=== PATIENT | female | born 1985 | race Caucasian/White ===

== ENCOUNTER 2022-05-02 13:25 | Outpatient (CLI) | payer BC, SELFPAY ==
[2022-05-02 22:58] LABS: SARS PCR* POSITIVE SARS-CoV-2 (Negative)
== END 2022-05-02 13:26 | disposition home or self-care (01) ==
LOC: KYNREF 13:25
PROVIDERS: PCP Nurse Practitioner Family; Visit Provider Nurse Practitioner Family
DX: U07.1 COVID-19 (principal); J11.1 Influenza due to unidentified influenza virus with other respiratory manifestations
CPT/HCPCS: 87635

== ENCOUNTER 2022-07-27 16:16 | Outpatient (CLI) | payer BC, SELFPAY ==
[2022-07-27 22:15] LABS: Chloride* 106 mmol/L (96-114); Potassium* 4.4 mmol/L (3.6-5.1); Sodium* 137 mmol/L (135-149)
[2022-07-27 22:17] LABS: Creatinine* 0.6 mg/dL (0.5-1.5); Estimated Glomerular Filt Rate 121 ml/min
[2022-07-27 22:18] LABS: Blood Urea Nitrogen* 12 mg/dL (5-24); Calcium* 8.7 mg/dL (8.4-10.6); Carbon Dioxide* 23 mmol/L (20-32); Glucose* 112 mg/dL (60-115)
== END 2022-07-27 16:17 | disposition home or self-care (01) ==
PROVIDERS: PCP Nurse Practitioner Family; Visit Provider Nurse Practitioner Family
DX: R00.2 Palpitations (principal)
CPT/HCPCS: 80048; 84443

== ENCOUNTER 2023-01-04 13:56 | Outpatient (CLI) | payer BC, SELFPAY ==
--- NOTE | 2023-01-04 14:00 | CRLHL7_ITS ---
For Patients: As a result of the Century Cures Act, medical imaging exams and procedure reports are released immediately into your electronic medical record. You may view this report before your referring provider. If you have questions, please contact your health care provider. INDICATION: Superficial thrombophlebitis, increasing pain and redness. COMPARISON: Right lower extremity venous ultrasound 01/02/2023. TECHNIQUE: A compression venous ultrasound exam was performed of the right lower extremity using montes de oca-scale imaging, color Doppler and spectral Doppler analysis. FINDINGS: Sonographic imaging of the right lower extremity demonstrates normal compressibility and color Doppler venous blood flow within the common femoral, femoral, and deep femoral veins. At a lower level the popliteal, peroneal, and posterior tibial veins also show normal compressibility and color Doppler venous blood flow. There is increased extent of superficial thrombus within the right greater saphenous vein which now extends from mid calf to mid thigh. The proximal greater saphenous vein and saphenofemoral junction are patent. Limited imaging of the contralateral groin demonstrates a normal spectral waveform and color Doppler venous blood flow within the left common femoral vein. IMPRESSION: 1. Negative for acute DVT in the right lower extremity. 2. Increased extent of superficial thrombus within the right greater saphenous vein which now extends from mid calf to mid thigh. This remains several centimeters from the saphenofemoral junction. Dictated by Ivonne Melendrez MD @ 01/05/2023 12:39:58 AM (Electronically Signed)
== END 2023-01-04 13:57 | disposition home or self-care (01) ==
PROVIDERS: PCP Nurse Practitioner Family; Visit Provider Nurse Practitioner Family
DX: I80.02 Phlebitis and thrombophlebitis of superficial vessels of left lower extremity (principal)
CPT/HCPCS: 93971

== ENCOUNTER 2023-01-05 08:49 | Outpatient (CLI) | payer BC, SELFPAY | END 2023-01-05 08:50 | disposition home or self-care (01) | PROVIDERS: PCP Nurse Practitioner Family; Visit Provider Nurse Practitioner Family | DX: I80.01 Phlebitis and thrombophlebitis of superficial vessels of right lower extremity (principal) | CPT/HCPCS: 80048; 81241 ==

== ENCOUNTER 2023-01-08 10:40 | Outpatient (CLI) | payer BC, SELFPAY | END 2023-01-08 10:41 | disposition home or self-care (01) | LOC: NFLDREF 01-14 07:02 | PROVIDERS: PCP Nurse Practitioner Family; Referring Provider Nurse Practitioner Family; Visit Provider Nurse Practitioner Family | DX: I80.9 Phlebitis and thrombophlebitis of unspecified site (principal); Z51.81 Encounter for therapeutic drug level monitoring | CPT/HCPCS: 81241 ==

== ENCOUNTER 2023-01-11 14:58 | Outpatient (CLI) | payer BC, SELFPAY ==
--- NOTE | 2023-01-11 15:00 | CRLHL7_ITS ---
For Patients: As a result of the Century Cures Act, medical imaging exams and procedure reports are released immediately into your electronic medical record. You may view this report before your referring provider. If you have questions, please contact your health care provider. INDICATION: FOLLOW UP SUPERFICIAL THROMBOPHLEBITIS COMPARISON: 01/04/2023 TECHNIQUE: A compression venous ultrasound exam was performed of the right lower extremity using montes de oca-scale imaging, color Doppler and spectral Doppler analysis. FINDINGS: Sonographic imaging of the right lower extremity demonstrates normal compressibility and color Doppler venous blood flow within the common femoral vein and deep femoral vein. Within the thigh, the femoral vein is patent and compressible. At a lower level, the popliteal and posterior tibial veins also show normal compressibility and color Doppler venous blood flow. Limited imaging of the contralateral groin demonstrates a normal spectral waveform and color Doppler venous blood flow within the left common femoral vein. Hypoechoic noncompressible clot again noted within the right greater saphenous vein in the mid and distal thigh extending to the knee and proximal calf. The mid calf greater saphenous vein is now compressible. IMPRESSION: No DVT right lower extremity. Slight improvement in the long segment superficial clot involving the greater saphenous vein. Dictated by Destin Terrazas MD @ 01/11/2023 3:39:31 PM (Electronically Signed)
== END 2023-01-11 14:59 | disposition home or self-care (01) ==
LOC: US 14:59
PROVIDERS: PCP Nurse Practitioner Family; Visit Provider Nurse Practitioner Family
DX: I80.9 Phlebitis and thrombophlebitis of unspecified site (principal)
CPT/HCPCS: 93971

== ENCOUNTER 2023-01-18 13:38 | Outpatient (CLI) | payer SELFPAY | END 2023-01-18 13:39 | disposition home or self-care (01) | LOC: KYNREF 14:34 | PROVIDERS: PCP Nurse Practitioner Family; Visit Provider Nurse Practitioner Family | DX: I80.9 Phlebitis and thrombophlebitis of unspecified site (principal); Z51.81 Encounter for therapeutic drug level monitoring | CPT/HCPCS: 85379 ==

== ENCOUNTER 2023-06-07 08:35 | Outpatient (CLI) | payer BC, SELFPAY ==
--- OUTSIDE RECORDS SUMMARY | 2023-06-07 08:40 | XMS_ITS | Referral Summary ---
Author Name Unknown Organization [facility] Address [address] [place] [address]. [place] [address] Care Team Providers Care Linen Checker Name Role Phone Sherice Lange NP Primary Care Provider Burton Barragan MD Unavailable [phone] Encounters Date Type Department Care Team Description 04/16/2023 Travel 04/16/2023 9:10 AM MILLWRIGHT SUPERVISOR Office Visit [facility] [address] [phone] Burton Barragan MD Acute superficial venous thrombosis of lower extremity, right 04/04/2023 Travel 04/04/2023 10:30 AM MILLWRIGHT SUPERVISOR Lab [facility] [address] [place] [phone] Burton Barragan MD Acute superficial venous thrombosis of lower extremity, right 04/04/2023 11:00 AM MILLWRIGHT SUPERVISOR Ancillary Procedure [facility] [address] [phone] Burton Barragan MD Acute superficial venous thrombosis of lower extremity, right from Last 3 Months Allergies No known active allergies Medications Medication Sig Dispensed Refills Start Date End Date Status CloNIDine ER (KAPVAY) 0.1 MG 12 hr tablet TAKE 4 TABLET BY MOUTH EVERY EVENING 0 01/03/2023 Active ARIPiprazole (ABILIFY) 5 MG tablet 0 12/27/2022 Active Methylphenidate HCl (METHYLPHENIDATE ER, NON-OSM,) 54 MG 24H tablet Take 54 mg by mouth 0 Active rivaroxaban ANTICOAGULANT (XARELTO) 10 MG TABS tabletIndications:Acut e superficial venous thrombosis of lower extremity, right Take 1 tablet (10 mg) by mouth daily (with dinner) 90 tablet 1 04/16/2023 Active Social History Tobacco Use Types Packs/Day Years Used Date Smoking Tobacco: Never Tobacco Cessation:Counseling Given: Not Answered Alcohol Use Standard Drinks/Week Comments Not Currently 0 (1 standard drink = 0.6 oz pur e alcohol) 1x every 2 months Adolescent Education Answer Date Record ed Getting School Help Needed Not on file 02/02 Sex and Gender Information Value Date Recorded Sex Assigned at Female 01/25/2023 9:48 AM CDT Gender Identity Female 01/25/2023 9:48 AM CDT Sexual Orientation Bisexual 01/25/2023 9: 48 AM CDT Last Filed Vital Signs Vital Sign Reading Time Taken Comments Blood Pressure 118/80 04/16/2023 9:06 AM MILLWRIGHT SUPERVISOR Pulse 79 04/16/2023 9:06 AM MILLWRIGHT SUPERVISOR Temperature - - Respiratory Rate - - Oxygen Saturation 99% 04/16/2023 9:06 AM MILLWRIGHT SUPERVISOR Inhaled Oxygen Concentration - - Weight 117.6 kg (259 lb 3.2 oz) 04/16/2023 9:06 AM MILLWRIGHT SUPERVISOR Height 171.5 cm (5' 7.5) 04/16/2023 9:06 AM MILLWRIGHT SUPERVISOR Body Mass Index 40 04/16/2023 9:06 AM MILLWRIGHT SUPERVISOR Plan of Treatment Not on file Procedures Procedure Name Priority Date/Time Associated Diagnosis Comments US VENOUS COMPETENCY BILATERAL Routine 04/04/2023 12:08 PM MILLWRIGHT SUPERVISOR Acute superficial venous thrombosis of lower extremity, right D DIMER QUANTITATIVE Routine 04/04/2023 10:38 AM MILLWRIGHT SUPERVISOR Acute superficial venous thrombosis of lower extremity, right from Last 3 Months Results * US Venous Competency Bilateral (04/04/2023 12:08 PM MILLWRIGHT SUPERVISOR) Anatomical Region Laterality Modality Lower Extremity Ultrasound Impressions 04/09/2023 10:49 AM MILLWRIGHT SUPERVISOR Examined by: Freddy Doan RVT Age: ??37 year old ? Reading MD: Milagros Arrington INDICATION: ??Patient is referred for superficial thrombophlebitis. EXAM TYPE BILATERAL LOWER EXTREMITY VENOUS DUPLEX FOR VENOUS INSUFFICIENCY TECHNICAL SUMMARY A duplex ultrasound study using color flow was performed, to evaluate the bilateral lower extremity veins for valvular incompetence with the patient in a steep reversed trendelenberg. RIGHT: The deep veins demonstrate phasic flow, compress and respond to augmentations. ??There is no DVT. ??The common femoral and mid femoral veins are incompetent and free of thrombus. The remaining deep veins are competent and free of thrombus. The GSV is partially compressible in the proximal calf with response to color flow and augmentations, consistent with chronic, non-occlusive thrombus. The remaining great saphenous vein demonstrates phasic flow, compresses and responds to augmentations. ??The great saphenous vein measures 7.2 mm at the saphenofemoral junction, 6.4 mm at the proximal thigh, and 3.5 mm at the knee. The GSV is incompetent from SFJ to Proximal Calf, with the greatest reflux time of 7061 milliseconds. The mid thigh GSV leaves the sheath and is tortuous. ?? The AASV is competent ( 3.7 mm) draining into the saphenofemoral junction. The Giacomini vein is absent. The SSV demonstrates phasic flow, compresses and responds to augmentations from the popliteal space to the ankle. ??No thrombus is seen. The saphenopopliteal junction is competent (2.1 mm). ??The SSV is incompetent at the Proximal Calf ??with a reflux time of 763 milliseconds. Perforators: there is no evidence of incompetent travel insurance agent veins at any level. LEFT: The deep veins demonstrate phasic flow, compress and respond to augmentations. ??There is no DVT. ??The proximal femoral vein is incompetent and free of thrombus. The remaining deep veins are competent and free of thrombus. The GSV demonstrates phasic flow, compresses and responds to augmentations from the saphenofemoral junction to the ankle with no evidence of thrombus. The great saphenous vein measures 5.2 mm at the saphenofemoral junction, 4.9 mm at the proximal thigh, and 2.8 mm at the knee. The GSV is incompetent from Proximal Thigh to Mid Thigh and again at the proximal calf, with the greatest reflux time of 5576 milliseconds. ??The GSV gives rise to a varicose branch measuring 6.9 mm off the ??Mid Thigh that courses toward proximal calf GSV where it also connects with a reflux time of 5939 milliseconds. ?? The AASV is competent ( 3.4 mm) draining into the saphenofemoral junction. The Giacomini vein is competent ( 1.8 mm) communicating with the small saphenous vein at the knee level. The SSV demonstrates phasic flow, compresses and responds to augmentations from the popliteal space to the ankle. ??No reflux or thrombus is seen. ?? The saphenopopliteal junction is absent. Perforators: there is no evidence of incompetent travel insurance agent veins at any level. FINAL SUMMARY: Right lower extremity: Deep veins 1. ??No deep vein thrombosis 2. ??Common femoral and mid femoral vein incompetence, otherwise the deep vein valves are competent Superficial veins 1. ??Chronic, nonocclusive thrombus right proximal to mid calf great saphenous vein 2. ??Saphenofemoral junction through proximal calf great saphenous vein incompetence 3. ??Proximal calf small saphenous vein incompetence Director Semiconductor veins No incompetent perforators Left lower extremity: Deep veins 1. ??No deep vein thrombosis 2. ??Proximal femoral vein incompetence, otherwise the deep vein valves are competent Superficial veins 1. ??No superficial thrombophlebitis 2. ??Proximal to mid femoral and proximal calf great saphenous vein incompetence. ??A large, incompetent varicosity courses from the thigh great saphenous vein down to the medial calf Director Semiconductor veins No incompetent perforators Incompetence Criteria: greater than 500 milliseconds in superficial and travel insurance agent veins and greater than 1000 milliseconds in deep veins. Milagros Arrington MD, FACS Narrative 04/09/2023 10:49 AM MILLWRIGHT SUPERVISOR Name: ??Kun Wu ? Date: April 04, 2023 ?: 1985 Sex: female Burton Barragan MD IMG US ORDER MAR * D dimer quantitative (04/04/2023 10:38 AM MILLWRIGHT SUPERVISOR) D-Dimer Quantitative 0.35 0.00 - 0.50 ug/mL FEU 04/04/2023 2:24 PM MILLWRIGHT SUPERVISOR [facility] Blood STRUCTURE OF LEFT UPPER LIMB / Unknown Venipuncture / Unknown 04/04/2023 10:38 AM MILLWRIGHT SUPERVISOR 04/04/2023 10:38 AM MILLWRIGHT SUPERVISOR Narrative [facility] - 04/04/2023 2:24 PM MILLWRIGHT SUPERVISOR This D-dimer assay is intended for use in conjunction with a clinical pretest probability assessment model to exclude pulmonary embolism (PE) and deep venous thrombosis (DVT) in outpatients suspected of PE or DVT. The cut-off value is 0.50 ug/mL FEU. Burton Barragan MD LAB - BLOOD ORDERABLES [facility] [address] Lab (no room number, 1st floor of clinic) [place] [address], [facility] [phone] from Last 3 Months Care Teams Linen Checker Relationship Specialty Start Date End Date Sherice Lange NP [address] [address] PCP - General 01/25/23 Burton Barragan MD [address] [place] [address] Assigned Heart and Vascular Provider 02/03/23
--- OUTSIDE RECORDS SUMMARY | 2023-06-07 08:40 | XMS_ITS | Clinical Summary ---
Author Name Unknown Organization [facility] Address [address] [place] [address]. [place] [address] Care Team Providers Care Fisheries Officer Name Role Phone Sherice Lange NP Primary Care Provider Burton Barragan MD Unavailable [phone]- [phone] Allergies No known active allergies Medications Medication [...] (with dinner) 90 tablet 1 04/16/2023 Active Encounters Date Type Department Care Team Description 04/16/2023 9:10 AM MAIL OFFICER Office Visit [facility] [place] [address] [facility] [place] [phone] Burton Barragan MD Acute superficial venous thrombosis of lower extremity, right 04/16/2023 Travel 04/04/2023 11:00 AM MAIL OFFICER Ancillary Procedure [facility] [address] [facility] [address] [place] [phone] Burton Barragan MD Acute superficial venous thrombosis of lower extremity, right 04/04/2023 10:30 AM MAIL OFFICER Lab [facility] [address] [place] [address] Burton Barragan MD Acute superficial venous thrombosis of lower extremity, right 04/04/2023 Travel from Last 3 Months Social History Tobacco Use Types Packs/Day Years [...] Comments Blood Pressure 118/80 04/16/2023 9:06 AM MAIL OFFICER Pulse 79 04/16/2023 9:06 AM MAIL OFFICER Temperature - - Respiratory Rate - - Oxygen Saturation 99% 04/16/2023 9:06 AM MAIL OFFICER Inhaled Oxygen Concentration - - Weight 117.6 kg (259 lb 3.2 oz) 04/16/2023 9:06 AM MAIL OFFICER Height 171.5 cm (5' 7.5) 04/16/2023 9:06 AM MAIL OFFICER Body Mass Index 40 04/16/2023 9:06 AM MAIL OFFICER Plan of Treatment Health Maintenance Due Date Last Done Comments ADVANCE CARE PLANNING 1985 ANNUAL REVIEW OF HM ORDERS 1985 YEARLY PREVENTIVE VISIT 1985 COVID-19 Vaccine (#1) 04/07/1988 HEPATITIS B IMMUNIZATION (3 of 3 - 3-dose series) 11/22/1999 09/27/1999, 01/08/1997 HIV SCREENING 10/05/2002 HEPATITIS C SCREENING 10/05/2005 PAP 10/05/2008 INFLUENZA VACCINE (#1) 2023 3, 04/26/2009, 04/26/2009 PHQ-2 (once per calendar year) 2023 DTAP/TDAP/TD IMMUNIZATION (10 - Td or Tdap) 11/12/2030 11/12/2020, 04/26/2009, 09/27/1999, Additional history exists IPV IMMUNIZATION Completed 12/22/1992, , 02/01/1988, Additional history exists HPV IMMUNIZATION Completed 02/14/2013, 11/2010, 04/26/2009 MENINGITIS IMMUNIZATION Aged Out No l onger eligible based on patient's age to complete this topic Pneumococcal Vaccine: Pediatrics (0 to 5 Years) and At-Risk Patients (6 to 64 Years) Aged Out No longer eligible based on patient's age to complete this topic RSV MONOCLONAL ANTIBODY Aged Out No l onger eligible based on patient's age to complete this topic Procedures Procedure Name Priority Date/Time Associated Diagnosis Comments US VENOUS COMPETENCY BILATERAL Routine 04/04/2023 12:08 PM MAIL OFFICER Acute superficial venous thrombosis of lower extremity, right D DIMER QUANTITATIVE Routine 04/04/2023 10:38 AM MAIL OFFICER Acute superficial venous thrombosis of lower extremity, right from Last 3 Months Results * US Venous Competency Bilateral (04/04/2023 12:08 PM MAIL OFFICER) Anatomical Region Laterality Modality Lower Extremity Ultrasound Impressions 04/09/2023 10:49 AM MAIL OFFICER Examined by: Freddy Doan RVT Age: ??37 [...] Perforators: there is no evidence of incompetent agency director veins at any level. LEFT: The deep [...] Perforators: there is no evidence of incompetent agency director veins at any level. FINAL SUMMARY: Right lower extremity: Deep veins 1. ??No deep vein thrombosis 2. ??Common femoral and mid femoral vein incompetence, otherwise the deep vein valves are competent Superficial veins 1. ??Chronic, nonocclusive thrombus right proximal to mid calf great saphenous vein 2. ??Saphenofemoral junction through proximal calf great saphenous vein incompetence 3. ??Proximal calf small saphenous vein incompetence Degree Clerk veins No incompetent perforators Left lower extremity: Deep veins 1. ??No deep vein thrombosis 2. ??Proximal femoral vein incompetence, otherwise the deep vein valves are competent Superficial veins 1. ??No superficial thrombophlebitis 2. ??Proximal to mid femoral and proximal calf great saphenous vein incompetence. ??A large, incompetent varicosity courses from the thigh great saphenous vein down to the medial calf Degree Clerk veins No incompetent perforators Incompetence Criteria: greater than 500 milliseconds in superficial and agency director veins and greater than 1000 milliseconds in deep veins. C Davin Arrington MD, FACS Narrative 04/09/2023 10:49 AM MAIL OFFICER Name: ??Kun Wu ? Date: April 04, 2023 ?: 1985 Sex: female Burton Barragan MD [facility] ORDER MAR * D dimer quantitative (04/04/2023 10:38 AM MAIL OFFICER) [facility] D-Dimer Quantitative 0.35 0.00 - 0.50 ug/mL [facility] 04/04/2023 2:24 PM MAIL OFFICER [facility] Blood STRUCTURE OF LEFT UPPER LIMB / Unknown Venipuncture / Unknown 04/04/2023 10:38 AM MAIL OFFICER 04/04/2023 10:38 AM MAIL OFFICER Narrative [facility] - 04/04/2023 2:24 PM MAIL OFFICER This D-dimer assay is intended for use in conjunction with a clinical pretest probability assessment model to exclude pulmonary embolism (PE) and deep venous thrombosis (DVT) in outpatients suspected of PE or DVT. The cut-off value is 0.50 ug/mL FEU. Burton Barragan MD LAB - BLOOD ORDERABLES [facility] [address] Lab (no room number, 1st floor of clinic) [place] [address], [facility] [phone] from Last 3 Months Care Teams Fisheries Officer Relationship Specialty Start Date End Date Sherice Lange NP [facility] [address] [place] [address] PCP - General 01/25/23 Burton Barragan MD [address] [place] [address] Assigned Heart and Vascular Provider 02/03/23
--- OUTSIDE RECORDS SUMMARY | 2023-06-07 08:40 | XMS_ITS | Clinical Summary ---
Author Name Unknown Organization [employer] Address [place], [place] [address] Care Team Providers Care Pain Management Nurse Practitioner Name Role Phone None Unavailable Unavailable Pcp, No Primary Care Provider Unavailabl e Allergies No known active allergies Medications Medication Sig Dispensed Refills Start Date End Date Status PNV with Ca,No.72-Iron-FA ( PLUS, CALCIUM CARB,) 27-1 mg tab Take 1 tablet by mouth once daily. 90 tablet 3 02/22/2013 Active ibuprofen (ADVIL; MOTRIN) 200 mg tablet Take 200 mg by mouth 4 times daily if needed. 0 Active dextromethorphan polistirex (DELSYM 12 HOUR ORAL) Take 5-10 mL by mouth every 12 hours if needed. 0 Active benzonatate (TESSALON) 200 mg capsuleIndication s:Cellulitis and abscess of right leg Take 1 capsule by mouth 3 times daily if needed. 15 capsule 0 01/10/2018 Active lisdexamfetamine dimesylate (VYVANSE ORAL) Take by mouth. 0 Active HYDROcodone-aceta minophen (NORCO) 5-325 mg per tabletIndications :Basal cell carcinoma (BCC) of medial canthus of right eye Take 1-2 Tablets by mouth every 4 hours if needed for Pain. Max acetaminophen dose: 4000 mg in 24 hrs. 20 Tablet 0 05/17/2022 Active ARIPiprazole (ABILIFY) 5 mg tablet 0 12/27/2022 Active methylphenidate 54 mg ER tablet (CONCERTA BRAND ONLY) Take 54 mg by mouth once daily. 0 Active cloNIDine 0.1 mg/24 hr ([id number]) 0.1 mg/24 hr patch Apply 1 Patch on dry, clean, hairless skin once weekly. 0 Active drospirenone-ethi nyl estradioL (ADRIEN) 3-0.02 mg tablet Take 1 Tablet by mouth once daily. 0 Active Active Problems Problem Noted Date Diagnosed Date Basal cell carcinoma (BCC) of medial canthus 08/2022 Cough in adult 01/08/2018 Cellulitis of right lower extremity 01/07/2018 Class 3 obesity in adult 01/07/2018 Myopia 10/14/2012 Immunizations Name Administration Dates Next Due DTaP 05/29/1989,05/02/1988,02/01/1988 ,1985 Hepatitis B (Peds) 09/27/1999 Human Papilloma Virus Vaccine 06/20/2010, 009 Inactivated Polio Vaccine 05/29/1989,02/01/1988, 1985 Influenza, IIV3 (Age >=3 years) 04/26/2009 MMR 09/27/1999,02/27/1989 Tdap 04/26/2009,09/27/1999 Family History Medical History Relation Name Comments Good Health Brother Good Health Father Hypothyroidism Mother Good Health Sister Relation Name Status Comments Brother Father Mother Sister Social History Tobacco Use Types Packs/Day Years Used Date Smoking Tobacco: Never Smokeless Tobacco: Never Tobacco Cessation:Counseling Given: Not Answered Alcohol Use Standard Drinks/Week Comments No 0 (1 standard drink = 0.6 oz pur e alcohol) Sex and Gender Information Value Date Recorded Sex Assigned at Not on file Gender Identity Not on file Sexual Orientation Not on file Obstetrics History Para Term AB IAB SAB Ectopic Multiple Livin g Live Births 1 0 0 0 0 0 0 0 Date Outcome GA Total Labor Labor/2nd/3rd Weight Sex Delivery Anes PTL Kelley A1 A5 Name Cl in Last Filed Vital Signs Vital Sign Reading Time Taken Comments Blood Pressure 120/58 01/02/2023 5:14 PM CDT Pulse 78 01/02/2023 6:19 PM CDT Temperature 36.8 ??C (98.3 ??F) 01/02/2023 5:14 PM CD T Respiratory Rate 16 01/02/2023 6:19 PM CDT Oxygen Saturation 100% 01/02/2023 6:19 PM CDT Inhaled Oxygen Concentration - - Weight 111.1 kg (245 lb) 01/02/2023 5:14 PM CDT Height 171.5 cm (5' 7.5) 05/17/2022 9:51 AM HARDBOARD PANEL PRINTER Body Mass Index 37.81 05/17/2022 9:51 AM HARDBOARD PANEL PRINTER Plan of Treatment Health Maintenance Due Date Last Done Comments COVID-19 vaccine series (#1) 04/07/1988 Depression screening for age 12+ 1999 HIV for age 15-65 10/05/2002 BMI (ht and wt on same day) for age 18+ 10/05/2005 Hepatitis C screening for ag e 18-79 10/05/2005 Pap test for age 21-65 10/05/2008 Tetanus booster 04/26/2019 04/26/2009, 09/27/1999 Influenza for age 9-49 01/12/2023 04/26/2009 Tdap Completed 04/26/2009, 09/27/1999 Pneumococcal series for age 6-64 Aged Out No longer eligible b ased on patient's age to complete this topic Advance Directives Latest Code Status on File Code Status Date Activated Date Inactivated Comments Full Code 05/17/2022 9:27 AM 05/17/2022 3:58 PM Question Answer Comments Code Status Discussion: Other not disc ussed Code Status History Code Status Date Activated Date Inactivated Comments Full Code 01/08/2018 1:27 AM 01/10/2018 12:43 PM Question Answer Comments Code Status Discussion: Not Discussed Full Code 01/08/2018 1:27 AM 01/08/2018 1:27 AM Question Answer Comments Code Status Discussion: Not Discussed Care Teams Pain Management Nurse Practitioner Relationship Specialty Start Date End Date Pcp, No . PCP - General 04/28/22 None . 01/07/18
--- OUTSIDE RECORDS SUMMARY | 2023-06-07 08:41 | XMS_ITS | Encounter Summary ---
Author Name Unknown Organization [facility] Address [address] [place] [address] Care Team Providers Care Hvac Services Professional Name Role Phone Sherice Lange NP Primary Care Provider [phone] Burton Barragan MD Unavailable [phone]- [phone] Encounter Details Date Type Department Care Team (Late st Contact Info) Description 01/11/2023 [facility] [place] [address] [place] [phone] [facility] Social History Tobacco Use Types Packs/Day Years Used Date Smoking Tobacco: Never Assessed Sex and Gender Information Value Date Recorded Sex Assigned at Female 01/25/2023 9:48 AM CDT Gender Identity Female 01/25/2023 9:48 AM CDT Sexual Orientation Bisexual 01/25/2023 9: 48 AM CDT documented as of this encounter Plan of Treatment Not on file documented as of this encounter Visit Diagnoses Not on filedocumented in this encounter Care Teams Hvac Services Professional Relationship Specialty Start Date End Date Sherice Lange NP [address] [address] PCP - General 01/25/23 Burton Barragan MD [address] [place] [address] Assigned Heart and Vascular Provider 02/03/23 documented as of this encounter
--- OUTSIDE RECORDS SUMMARY | 2023-06-07 08:41 | XMS_ITS | Encounter Summary ---
Author Name Unknown Organization [facility] Address [address] [place] [address] Care Team Providers Care Engineer Design And Construction Name Role Phone Sherice Lange NP Primary Care Provider Encounter Details Date Type Department Care Team (Latest Contact Info) Description 01/25/2023 Travel Social History Tobacco Use Types Packs/Day Years Used Date Smoking Tobacco: Never Alcohol Use Standard Drinks/Week Comments Yes 0 (1 standard drink = 0.6 oz pur e alcohol) 1x every 2 months Sex and Gender Information Value Date Recorded Sex Assigned at Female 01/25/2023 9:48 AM CDT Gender Identity Female 01/25/2023 9:48 AM CDT Sexual Orientation Bisexual 01/25/2023 9: 48 AM CDT COVID-19 Exposure Response Date Recorded In the last 10 days, have yo u been in contact with someone who was confirmed or suspected to have Coronavirus/COVID-19? No / Unsure 01/25/2023 10:05 AM CDT documented as of this encounter Plan of Treatment Not on file documented as of this encounter Visit Diagnoses Not on filedocumented in this encounter Care Teams Engineer Design And Construction Relationship Specialty Start Date End Date Sherice Lange NP [address] [address] PCP - General 01/25/23 documented as of this encounter
--- OUTSIDE RECORDS SUMMARY | 2023-06-07 08:41 | XMS_ITS | Encounter Summary ---
Author Name Unknown Organization [facility] Address [address] [place] [address] Care Team Providers Care Snowblower Mechanic Name Role Phone Sherice Lange NP Primary Care Provider Burton Barragan MD Unavailable +- [phone] Encounter Details Date Type Department Care Team (Latest Contact Info) Description 04/04/2023 Travel Social History Tobacco Use Types Packs/Day [...] on filedocumented in this encounter Care Teams Snowblower Mechanic Relationship Specialty Start Date End Date Sherice Lange NP [address] [address] PCP - General 01/25/23 Bruton Barragan MD [address] [facility] [address] [place] [address] Assigned Heart and Vascular Provider 02/03/23 documented as of this encounter
--- OUTSIDE RECORDS SUMMARY | 2023-06-07 08:41 | XMS_ITS | Encounter Summary ---
Author Name Unknown Organization [facility] Address [address] [place] [address] Care Team Providers Care Pass Worker Name Role Phone Sherice Lange NP Primary Care Provider Burton Barragan MD Unavailable +- [phone] Encounter Details Date Type Department Care Team (Late st Contact Info) Description 01/11/2023 [facility] [place] [address] [place] [phone] [facility] Social History Tobacco Use Types Packs/Day Years [...] on filedocumented in this encounter Care Teams Pass Worker Relationship Specialty Start Date End Date Sherice Lange NP [address] [address] PCP - General 01/25/23 Burton Barragan MD [address] [place] [address] Assigned Heart and Vascular Provider 02/03/23 documented as of this encounter
--- OUTSIDE RECORDS SUMMARY | 2023-06-07 08:41 | XMS_ITS | Encounter Summary ---
Author Name Unknown Organization [facility] Address [address] [place] [address]. [place] [address] Care Team Providers Care Cat Hooker Name Role Phone Sherice Lange NP Primary Care Provider Burton Barragan MD Unavailable + [phone] Encounter Details Date Type Department Care Team (Late st Contact Info) Description 04/04/2023 10:30 AM SUPERVISOR RESIDENTIAL Lab [facility] [address] [place] [phone] Burton Barragan MD [address] [facility] [address] [place] [phone] Acute superficial venous thrombosis of lower extremity, right Social History Tobacco Use Types Packs/Day Years [...] on file documented as of this encounter Procedures Procedure Name Priority Date/Time Associated Diagnosis Comments D DIMER QUANTITATIVE Routine 04/04/2023 10:38 AM SUPERVISOR RESIDENTIAL Acute superficial venous thrombosis of lower extremity, right documented in this encounter Results * D dimer quantitative (04/04/2023 10:38 AM SUPERVISOR RESIDENTIAL) D-Dimer Quantitative 0.35 0.00 - 0.50 ug/mL FEU 04/04/2023 2:24 PM SUPERVISOR RESIDENTIAL [facility] Blood STRUCTURE OF LEFT UPPER LIMB / Unknown Venipuncture / Unknown 04/04/2023 10:38 AM SUPERVISOR RESIDENTIAL 04/04/2023 10:38 AM SUPERVISOR RESIDENTIAL Narrative [facility] - 04/04/2023 2:24 PM SUPERVISOR RESIDENTIAL This D-dimer assay is intended for use in conjunction with a clinical pretest probability assessment model to exclude pulmonary embolism (PE) and deep venous thrombosis (DVT) in outpatients suspected of PE or DVT. The cut-off value is 0.50 ug/mL FEU. Burton Barragan MD LAB - BLOOD ORDERABLES [facility] [address] Lab (no room number, 1st floor of clinic) [place] [address] [phone] documented in this encounter Visit Diagnoses Diagnosis Acute superficial venous thrombosis of lower extremity, right documented in this encounter Care Teams Cat Hooker Relationship Specialty Start Date End Date Sherice Lange NP [facility] [address] [place] [address] PCP - General 01/25/23 Burton Barragan MD [address] [facility] [address] [place] [address] Assigned Heart and Vascular Provider 02/03/23 documented as of this encounter
--- OUTSIDE RECORDS SUMMARY | 2023-06-07 08:41 | XMS_ITS | Encounter Summary ---
Author Name Unknown Organization [place] Address [address] [place] [address] Care Team Providers Care Document Control Supervisor Name Role Phone Sherice Lange NP Primary Care Provider Burton Barragan MD Unavailable [phone] Encounter Details Date Type Department Care Team (Late st Contact Info) Description 01/19/2023 [facility] [place] [address] [place] [phone] [facility] Social History Tobacco Use Types [...] on filedocumented in this encounter Care Teams Document Control Supervisor Relationship Specialty Start Date End Date Sherice Lange NP [address] [address] PCP - General 01/25/23 Burton Barragan MD [address] [place] [address] Assigned Heart and Vascular Provider 02/03/23 documented as of this encounter
--- OUTSIDE RECORDS SUMMARY | 2023-06-07 08:41 | XMS_ITS | Encounter Summary ---
Author Name Unknown Organization [facility] Address [address] [place] [address] Care Team Providers Care Raw Products Director Name Role Phone Sherice Lange NP Primary Care Provider + [phone] Burton Barragan MD Unavailable + [phone] Reason for Referral * Consultation (Routine: Next available opening) - Pending Review Specialty Diagnoses / Procedures Referred By Gabriele hoffman Referred To Contact Diagnoses Acute superficial venous thrombosis of lower extremity, right Burton Barragan MD [address] [place] [address] Referral ID Status Reason Start Date Expiration Date V isits Requested Visits Authorized [id number] Pending Review 05/03/2023 05/02/2024 1 1 Question Answer New or return visit? Return Appt Length 30 Min To be seen by Dr. Burton Barragan Comments Follow-up to 04/16/23 D-dimer (non-fasting lab) BLE venous competency ultrasound Follow up one week later. In clinic preferred by provider. These are internal orders to be used by [facility] providers only. FURNITURE MAKER * Diagnostic Imaging Ultrasound (Routine) - Pending Review Specialty Diagnoses / Procedures Referred By Gabriele hoffman Referred To Contact Radiology. Diagnoses Acute superficial venous thrombosis of lower extremity, right Procedures US Venous Competency Bilateral Burton Barragan MD [address] [place] [address] Referral ID Status Reason Start Date Expiration Date V isits Requested Visits Authorized [id number] Pending Review 04/16/2023 04/15/2024 1 1 FURNITURE MAKER Reason for Visit * Reason Comments RECHECK (Lab + Vein 04/04) F ollow-up to 01/25/23 .IHSAN * Consultation (Routine: Next available opening) - Pending Review Specialty Diagnoses / Procedures Referred By Contac t Referred To Contact Diagnoses Acute superficial venous thrombosis of lower extremity, right Burton Barragan MD [address] [place] [address] Referral ID Status Reason Start Date Expiration Date V isits Requested Visits Authorized [id number] Pending Review 01/30/2023 01/30/2024 1 1 Encounter Details Date Type Department Care Team (Late st Contact Info) Description 04/16/2023 9:10 AM CANE FURNITURE MAKER Office Visit [facility] [place] [address] [place] [phone] Burton Barragan MD [address] [place] [address] Acute superficial venous thrombosis of lower extremity, [...] AM CDT documented as of this encounter Last Filed Vital Signs Vital Sign Reading Time Taken Comments Blood Pressure 118/80 04/16/2023 9:06 AM CANE FURNITURE MAKER Pulse 79 04/16/2023 9:06 AM CANE FURNITURE MAKER Temperature - - Respiratory Rate - - Oxygen Saturation 99% 04/16/2023 9:06 AM CANE FURNITURE MAKER Inhaled Oxygen Concentration - - Weight 117.6 kg (259 lb 3.2 oz) 04/16/2023 9:06 AM CANE FURNITURE MAKER Height 171.5 cm (5' 7.5) 04/16/2023 9:06 AM CANE FURNITURE MAKER Body Mass Index 40 04/16/2023 9:06 AM CANE FURNITURE MAKER documented in this encounter Progress Notes * Zakia Reyes - 04/16/2023 9:10 AM CST Patient is here to discuss FOLLOW UP BP 118/80 (BP Location: Right arm, Patient Position: Chair, Cuff Size: Adult Large) Pulse 79 Ht5' 7.5 (1.715 m) Wt 259 lb 3.2 oz (117.6 kg) SpO2 99% BMI 40.00 kg/m?? Questions patient would like addressed today are: N/A. Refills are needed: No Has homecare services and agency name: Anastasia REYES FURNITURE MAKER * Burton Barragan MD - 04/16/2023 9:10 AM CST HPI: Kun Wu is a morbidly obese (Body mass index is 37.96 kg/m??.) 37 year old female with a h/o one prior miscarriage. She has a sister who has a h/o a single miscarriage as well. She was on an estrogen containing OCs. Her maternal GM had a DVT in her elderly years. 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 She enjoys short distance bike rides. On 01/02/23 she presented to an urgent care c/o several days RLE discomfort. Duplex revealed no DVT, but did reveal RLE calf GSV SVT. She was not ACd initially. The pain persisted and worsened. She was reduplexed on 01/04/23 and thrombus had extended to within 5 cm of the SFJ. She was then placed on Xarelto 10 mg daily on 01/05/23. She was tested for and found to heterozygous for the Leiden mutation. Pain and swelling improved. 01/11/23 surveillance duplex revealed clot regression in the calf but remaining in the thigh but not encroaching further upon or into the SFJ. She presents to discuss mgmt. As she was not encroaching further upon the SFJ, I did not favor increasing the dose to 20 mg dailyon 01/25/23. As she had a large volume of clot initially and is young, I did prefer a twelve week course of AC a supposed to six weeks for SVT. D dimer of 04/04/23 was normal. Venous comp study of 04/04/23 revealed no DVT, persistent but smaller Rt calf GSV SVT, and bilateral venous incompetence into the thighs. She is wearing compression to the thigh high location. Review Of Systems Skin: negative Eyes: negative Ears/Nose/Throat: negative Respiratory: No shortness of breath, dyspnea on exertion, cough, or hemoptysis Cardiovascular: positive for persistent tachycardia predating her SVT for one year prior to recnet SVT Gastrointestinal: negative Genitourinary: negative Musculoskeletal: positive for improving RLE pain and tightness Neurologic: negative Psychiatric: negative Hematologic/Lymphatic/Immunologic: negative Endocrine: negative PAST MEDICAL HISTORY: Past Medical History No past medical history on file. PAST SURGICAL HISTORY: Past Surgical History No past surgical history on file. CURRENT MEDICATIONS: Current Outpatient Prescriptions No current outpatient medications on file. ALLERGIES: Not on File SOCIAL HISTORY: Social History Social History Socioeconomic History Marital status: Spouse name: Not on file Number of children: Not on file Years of education: Not on file Highest education level: Not on file Occupational History Not on file Tobacco Use Smoking status: Not on file Smokeless tobacco: Not on file Substance and Sexual Activity Alcohol use: Not on file Drug use: Not on file Sexual activity: Not on file Other Topics Concern Not on file Social History Narrative Not on file Social Determinants of Health Financial Resource Strain: Not on file Food Insecurity: Not on file Transportation Needs: Not on file Physical Activity: Not on file Stress: Not on file Social Connections: Not on file Intimate Partner Violence: Not on file Housing Stability: Not on file FAMILY HISTORY: Family History No family history on file. Physical exam Reveals: O/P: WNL HEENT: WNL NECK: No JVD, thyromegaly, or lymphadenopathy HEART: RRR, no murmurs, gallops, or rubs LUNGS: CTA bilaterally without rales, wheezes, or rhonchi GI: NABS, nondistended, nontender, soft EXT:without cyanosis, clubbing, or edema 430 mm Rt calf circumference, 420 mm Lt calf circumference. NEURO: nonfocal : no flank tenderness Component Latest Ref Rng 04/04/2023 10:38 AM D-Dimer Quantitative 0.00 - 0.50 ug/mL FEU 0.35 Name: Kun Wu Date: April 04, 2023 : 1985 Sex: female Examined by: Freddy Doan RVT Age: [age] year old Reading MD: Milagros Arrington INDICATION: Patient is referred for superficial thrombophlebitis. EXAM TYPE BILATERAL LOWER EXTREMITY VENOUS DUPLEX FOR VENOUS INSUFFICIENCY TECHNICAL SUMMARY A duplex ultrasound study using color flow was performed, to evaluate the bilateral lower extremityveins for valvular incompetence with the patient in a steep reversed trendelenberg. RIGHT: The deep veins demonstrate phasic flow, compress and respond to augmentations. There is no DVT. Thecommon femoral and mid femoral veins are incompetent and free of thrombus. The remaining deep veinsare competent and free of thrombus. The GSV is partially compressible in the proximal calf with response to color flow and augmentations, consistent with chronic, non-occlusive thrombus. The remaining great saphenous vein demonstrates phasic flow, compresses and responds to augmentations. The great saphenous vein measures 7.2 mm at the saphenofemoral junction, 6.4 mm at the proximal thigh, and 3.5 mm at the knee. The GSV is incompetent from SFJ to Proximal Calf, with the greatest reflux time of 7061 milliseconds. The mid thigh GSV leaves the sheath and is tortuous. The AASV is competent ( 3.7 mm) draining into the saphenofemoral junction. The Giacomini vein is absent. The SSV demonstrates phasic flow, compresses and responds to augmentations from the popliteal spaceto the ankle. No thrombus is seen. The saphenopopliteal junction is competent (2.1 mm). The SSV is incompetent at the Proximal Calf with a reflux time of 763 milliseconds. Perforators: there is no evidence of incompetent isotope hydrologist veins at any level. LEFT: The deep veins demonstrate phasic flow, compress and respond to augmentations. There is no DVT. Theproximal femoral vein is incompetent and free of [...] the greatest reflux time of 5576 milliseconds. The GSV gives rise to a varicose branch measuring 6.9 mm off the Mid Thigh that courses toward proximal calf GSV where it also connects with a reflux time of 5939 milliseconds. The AASV is competent ( 3.4 mm) draining into the saphenofemoral junction. The Giacomini vein is competent ( 1.8 mm) communicating with the small saphenous vein at the knee level. The SSV demonstrates phasic flow, compresses and responds to augmentations from the popliteal spaceto the ankle. No reflux or thrombus is seen. The saphenopopliteal junction is absent. Perforators: there is no evidence of incompetent isotope hydrologist veins at any level. FINAL SUMMARY: Right lower extremity: Deep veins 1. No deep vein thrombosis 2. Common femoral and mid femoral vein incompetence, otherwise the deep vein valves are competent Superficial veins 1. Chronic, nonocclusive thrombus right proximal to mid calf great saphenous vein 2. Saphenofemoral junction through proximal calf great saphenous vein incompetence 3. Proximal calf small saphenous vein incompetence Cheese Tester veins No incompetent perforators Left lower extremity: Deep veins 1. No deep vein thrombosis 2. Proximal femoral vein incompetence, otherwise the deep vein valves are competent Superficial veins 1. No superficial thrombophlebitis 2. Proximal to mid femoral and proximal calf great saphenous vein incompetence. A large, incompetent varicosity courses from the thigh great saphenous vein down to the medial calf Cheese Tester veins No incompetent perforators Incompetence Criteria: greater than 500 milliseconds in superficial and isotope hydrologist veins and greater than 1000 milliseconds in deep veins. C Davin Arrington MD, FACS A/P: (I82.811) Acute superficial venous thrombosis of lower extremity, right (primary encounter diagnosis) Comment: This was her first lifetime VTE event. It was provoked by estrogen use in an individual who is obese and who was not yet known to be a Leiden heterozygote. She has only had a single lifetimemiscarriage so APLA syndrome is unlikely and she may remain ACd on Xarelto. As she is not encroaching further upon the SFJ, I would not favor increasing the dose to 20 mg daily. As she was not encroaching further upon the SFJ, I did not favor increasing the dose to 20 mg daily on 01/25/23. As she had a large volume of clot initially and is young, I did prefer a twelve week course of AC a supposedto six weeks for SVT. D dimer of 04/04/23 was normal. Venous comp study of 04/04/23 revealed no DVT, persistent but smaller Rt calf GSV SVT, and bilateral venous incompetence into the thighs. She is wearing compression to the thigh high location. Plan: Continue rivaroxaban ANTICOAGULANT (XARELTO) 10 MG TABS tablet for three more months. Check ddimer and venous comp study in three months, if no further resorption, then consider cessation at that time. Compression Sleeve/Stocking Order for DME - ONLY FOR DME. 32 minutes total medical car rosalee today's date. FURNITURE MAKER documented in this encounter Miscellaneous Notes * Addendum Note - Jhonny Avila RN - 04/16/2023 9:10 AM CSTAddended by: JHONNY AVILA on: 05/03/2023 12:18 PM Modules accepted: Orders FURNITURE MAKER documented in this encounter Plan of Treatment Scheduled Orders Name Type Priority Associated Diagnoses Orde r Schedule D dimer quantitative Lab Routine Acute superficial venous thrombosis of lower extremity, right Expected: 08/16/2023, Expires: 11/11/2023 US Venous Competency Bilateral Imaging Routine Acute superficial venous thrombosis of lower extremity, right Expected: 08/16/2023, Expires: 11/11/2023 Scheduled Referrals Name Type Priority Associated Diagnoses Orde r Schedule Follow-Up with Vascular Medicine Referral Routine: Next available opening Acute superficial venous thrombosis of lower extremity, right Expected: 08/16/2023 (Approximate), Expires: 11/11/2023 documented as of this encounter Visit Diagnoses Diagnosis Acute superficial venous thrombosis of lower extremity, right documented in this encounter Care Teams Raw Products Director Relationship Specialty Start Date End Date Sherice Lange NP [address] [address] PCP - General 01/25/23 Burton Barragan MD [address] [place] [address] Assigned Heart and Vascular Provider 02/03/23 documented as of this encounter
--- OUTSIDE RECORDS SUMMARY | 2023-06-07 08:41 | XMS_ITS | Encounter Summary ---
Author Name Unknown Organization [facility] [place] Address [address] [place] [address] Care Team Providers Care Train Director Name Role Phone Sherice Lange NP Primary Care Provider Burton Barragan MD Unavailable +- [phone] Encounter Details Date Type Department Care Team (Latest Contact Info) Description 04/16/2023 Travel Social History Tobacco Use Types Packs/Day Years Used Date Smoking Tobacco: Never Alcohol Use Standard Drinks/Week Comments Not Currently [...] on filedocumented in this encounter Care Teams Train Director Relationship Specialty Start Date End Date Sherice Lange NP [address] [address] PCP - General 01/25/23 Burton Barragan MD [address] [facility] [address] [place] [address] Assigned Heart and Vascular Provider 02/03/23 documented as of this encounter
--- OUTSIDE RECORDS SUMMARY | 2023-06-07 08:41 | XMS_ITS | Encounter Summary ---
Author Name Unknown Organization [facility] Address [address] [place] [address]. [place] [address] Care Team Providers Care Machine Pecan Picker Name Role Phone Sherice Lange NP Primary Care Provider Burton Barragan MD Unavailable + [phone] Reason for Visit * Diagnostic Imaging Ultrasound (Routine) - Pending Review Specialty Diagnoses / Procedures Referred By Contac t Referred To Contact Radiology. Diagnoses Acute superficial venous thrombosis of lower extremity, right Procedures US Venous Competency Bilateral Burton Barragan MD [address] [place] [address] Referral ID Status Reason Start Date Expiration Date V isits Requested Visits Authorized [id number] Pending Review 01/30/2023 01/30/2024 1 1 Encounter Details Date Type Department Care Team (Late st Contact Info) Description 04/04/2023 11:00 AM SPECIAL DUTY NURSE Ancillary Procedure [facility] [address] [facility] [address] [place] [phone] Burton Barragan MD [address] [place] [id number] Acute superficial venous thrombosis of lower extremity, [...] VENOUS COMPETENCY BILATERAL Routine 04/04/2023 12:08 PM SPECIAL DUTY NURSE Acute superficial venous thrombosis of lower extremity, right documented in this encounter Results * US Venous Competency Bilateral (04/04/2023 12:08 PM SPECIAL DUTY NURSE) Anatomical Region Laterality Modality Lower Extremity Ultrasound Impressions 04/09/2023 10:49 AM SPECIAL DUTY NURSE Examined by: Freddy Doan RVT Age: ??37 [...] Perforators: there is no evidence of incompetent territory outside sales manager veins at any level. LEFT: The deep [...] Perforators: there is no evidence of incompetent territory outside sales manager veins at any level. FINAL SUMMARY: Right lower extremity: Deep veins 1. ??No deep vein thrombosis 2. ??Common femoral and mid femoral vein incompetence, otherwise the deep vein valves are competent Superficial veins 1. ??Chronic, nonocclusive thrombus right proximal to mid calf great saphenous vein 2. ??Saphenofemoral junction through proximal calf great saphenous vein incompetence 3. ??Proximal calf small saphenous vein incompetence Wood Gang Sawyer veins No incompetent perforators Left lower extremity: Deep veins 1. ??No deep vein thrombosis 2. ??Proximal femoral vein incompetence, otherwise the deep vein valves are competent Superficial veins 1. ??No superficial thrombophlebitis 2. ??Proximal to mid femoral and proximal calf great saphenous vein incompetence. ??A large, incompetent varicosity courses from the thigh great saphenous vein down to the medial calf [place]yer veins No incompetent perforators Incompetence Criteria: greater than 500 milliseconds in superficial and territory outside sales manager veins and greater than 1000 milliseconds in deep veins. C Davin Arrington MD, FACS Narrative 04/09/2023 10:49 AM SPECIAL DUTY NURSE Name: ??Kun Wu ? Date: April 04, 2023 ?: 1985 Sex: female Burton Barragan MD IMG US ORDER MAR documented in this encounter Visit Diagnoses Diagnosis Acute superficial venous thrombosis of lower extremity, right documented in this encounter Care Teams Machine Pecan Picker Relationship Specialty Start Date End Date Sherice Lange NP [address] [address] PCP - General 01/25/23 Burton Barragan MD [address] [place] [address] Assigned Heart and Vascular Provider 02/03/23 documented as of this encounter
--- OUTSIDE RECORDS SUMMARY | 2023-06-07 08:41 | XMS_ITS | Encounter Summary ---
Author Name Unknown Organization [facility] Address [address] [place] [address]. [place] [address] Care Team Providers Care Audit Reviewer Name Role Phone Sherice Lange NP Primary Care Provider [phone] Encounter Details Date Type Department Care Team (Late st Contact Info) Description 01/30/2023 Telephone [facility] [place] [address] [place] [phone] Burton Barragan MD [address] [place] [address] Social History Tobacco Use Types Packs/Day Years [...] AM CDT documented as of this encounter Miscellaneous Notes * Telephone Encounter - Radha Serrano RN - 01/30/2023 1:28 PM CDT Sent via [employer] system fax. * Telephone Encounter - Meeta Mane - 01/30/2023 12:49 PM CDT [facility] Who is the name of the provider?: [place] What is the location you see this provider at/preferred location?: Yvonne Person calling / Facility: [facility] Phone number: [phone] Nurse call back needed: unknown Reason for call: Dr. Lange Still waiting got this to be faxed: Appointment/Office 01/25/23 office visit Pharmacy location: n/a Outside Imaging: n/a Can we leave a detailed message on this number? N/a documented in this encounter Plan of Treatment Not on file documented as of this encounter Visit Diagnoses Not on filedocumented in this encounter Care Teams Audit Reviewer Relationship Specialty Start Date End Date Sherice Lange NP [address] [address] PCP - General 01/25/23 documented as of this encounter
--- OUTSIDE RECORDS SUMMARY | 2023-06-07 08:41 | XMS_ITS | Encounter Summary ---
Author Name Unknown Organization [facility] Address [address] [place] [address]. [place] [address] Care Team Providers Care Marketing Intelligence Analyst Name Role Phone Unavailable Primary Care Provider Unavailabl e Reason for Visit * Reason Onset Date Comments Referral 01/10/2023 Referred to [facility] by Sherice Lange APRN, CNP for SVT of RLE; Xarelto 10 mg for 45 days started 01/08. Encounter Details Date Type Department Care Team (Late st Contact Info) Description 01/10/2023 Telephone [facility] [address] [phone] Nurse, [facility] Referral (Referred to [facility] by Sherice aLnge APRN, CNP for SVT of RLE; Xarelto 10 mg for 45 days started 01/08./) Social History Tobacco Use Types Packs/Day Years Used Date Smoking Tobacco: Never Assessed Sex and Gender Information Value Date Recorded Sex Assigned at Female 01/25/2023 9:48 AM CDT Gender Identity Female 01/25/2023 9:48 AM CDT Sexual Orientation Bisexual 01/25/2023 9: 48 AM CDT documented as of this encounter Miscellaneous Notes * Telephone Encounter - Celena White RN - 01/11/2023 12:48 PM CDT [facility] are not part of Care everywhere. Patient will need to ensure we receive the results via fax. Celena WILLIAM RN [facility] Office: [phone] * Telephone Encounter - Meeta Mane - 01/11/2023 12:41 PM CDT Pt is wondering if her results could be viewed anywhere else. She feels that we should be able to access them even though they aren't a [facility]. * Telephone Encounter - Radha Serrano RN - 01/10/2023 3:18 PM CDT Lab order & demographics faxed as requested. [employer] 01/10/23 3:18 * Telephone Encounter - Meeta Mane - 01/10/2023 2:52 PM CDT Future Appointments Date Time Provider Department Center 01/25/2023 3:10 PM Burton Barragan MD [facility] Pt will be scheduling a lab appointment closer to her home. She is going to [facility] and would like the lab order faxed to: [phone] Pt was told to bring any other previous order lab results from Dr. Lange. She said she will bring the results on her phone digitally and was hoping that is sufficient. * Telephone Encounter - Radha Serrano RN - 01/10/2023 1:06 PM CDT Appt Note: Referred to [facility] by Sherice Lange APRN RN DELIVERY for SVT of RLE; Xarelto 10 mg for 45 days started 01/08. D-dimer prior. Pt needs to be scheduled for D-dimer (non-fasting lab) and NEW VASCULAR PATIENT with Vascular Medicine. Will route to scheduling to coordinate an appointment EARNEST. Please ask patient to bring results of any other labs ordered by Dr. Lange with her or to have them faxed to [phone] NATALIIA Smyth, RN [facility] * Telephone Encounter - Radha Serrano RN - 01/10/2023 12:42 PM CDT 01/02/23 RLE Venous US done @ [facility]: Superficial thrombophlebitis involving the greater saphenous vein from below the knee to the mid calf. Verified in PACs. 01/04/23 repeat LE Venous Ultrasound at [facility] - report states increased extent of thesuperficial thrombus within the right greater saphenous vein which now extends from mid calf to midthigh Verified in PACs Sent request to [employer] to ask that both be uploaded. Faxed referral sent to HIM. documented in this encounter Plan of Treatment Not on file documented as of this encounter Results * D dimer quantitative (04/04/2023 10:38 AM WOOD CRAFTSMAN) D-Dimer Quantitative 0.35 0.00 - 0.50 ug/mL FEU 04/04/2023 2:24 PM WOOD CRAFTSMAN [facility] Blood STRUCTURE OF LEFT UPPER LIMB / Unknown Venipuncture / Unknown 04/04/2023 10:38 AM WOOD CRAFTSMAN 04/04/2023 10:38 AM WOOD CRAFTSMAN Narrative [facility] - 04/04/2023 2:24 PM WOOD CRAFTSMAN This D-dimer assay is intended for use in conjunction with a clinical pretest probability assessment model to exclude pulmonary embolism (PE) and deep venous thrombosis (DVT) in outpatients suspected of PE or DVT. The cut-off value is 0.50 ug/mL FEU. Burton Barragan MD LAB - BLOOD ORDERABLES [facility] [address] Lab (no room number, 1st floor of clinic) [place] [address], [facility] [phone] documented in this encounter Visit Diagnoses Diagnosis Acute superficial venous thrombosis of lower extremity, right- Primary documented in this encounter
--- OUTSIDE RECORDS SUMMARY | 2023-06-07 08:41 | XMS_ITS | Encounter Summary ---
Author Name Unknown Organization [facility] Address [address] [place] [address] Care Team Providers Care Quality Lead Name Role Phone Sherice Lange NP Primary Care Provider [phone] Reason for Referral * Consultation (Routine: Next available opening) - Pending Review Specialty Diagnoses / Procedures Referred By Contac t Referred To Contact Diagnoses Acute superficial venous thrombosis of lower extremity, right Burton Barragan MD [address] [facility] [address] Referral ID Status Reason Start Date Expiration Date V isits Requested Visits Authorized Pending Review 01/30/2023 01/30/2024 1 1 Question Answer New or return visit? Return Appt Length 30 Min Comments Follow-up to 01/25/23 Around 04/04/23 - D-dimer (non-fasting lab) BLE venous competency ultrasound In clinic visit 3+ days later. These are internal orders to be used by [facility] providers only. * Diagnostic Imaging Ultrasound (Routine) - Pending Review Specialty Diagnoses / Procedures Referred By Contac t Referred To Contact Radiology. Diagnoses Acute superficial venous thrombosis of lower extremity, right Procedures US Venous Competency Bilateral Burton Barragan MD [address] [place] [address] Referral ID Status Reason Start Date Expiration Date V isits Requested Visits Authorized Pending Review 01/30/2023 01/30/2024 1 1 Reason for Visit * Reason Comments Consult Referred to [facility] by Milagros Lange APRN, CNP for SVT of RLE; Xarelto 10 mg for 45 days started 01/08. D-dimer prior. Encounter Details Date Type Department Care Team (Late st Contact Info) Description 01/25/2023 3:10 PM CDT Office Visit [facility] [place] [address] [place] [phone] Burton Barragan MD [address] [place] [id number] Acute superficial venous thrombosis of lower extremity, right (Primary Dx) Social History Tobacco Use Types Packs/Day Years Used Date Smoking Tobacco: Never Tobacco Cessation:Counseling Given: Not Answered Alcohol Use Standard Drinks/Week Comments Yes 0 [...] Sign Reading Time Taken Comments Blood Pressure 126/83 01/25/2023 3:15 PM CDT Pulse 119 01/25/2023 3:15 PM CDT Temperature - - Respiratory Rate - - Oxygen Saturation 99% 01/25/2023 3:13 PM CDT Inhaled Oxygen Concentration - - Weight 111.6 kg (246 lb) 01/25/2023 3:13 PM CDT Height 171.5 cm (5' 7.5) 01/25/2023 3:13 PM CDT Body Mass Index 37.96 01/25/2023 3:13 PM CDT documented in this encounter Progress Notes * Zakia Reyes - 01/25/2023 3:10 PM CDT Patient is here to discuss follow up BP 118/87 (BP Location: Right arm, Patient Position: Chair, Cuff Size: Adult Large) Pulse 115 Ht 5' 7.5 (1.715 m) Wt 246 lb (111.6 kg) SpO2 99% BMI 37.96 kg/m?? Questions patient would like addressed today are: N/A. 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 She has a sister who has a h/o a single miscarriage as well. She was on an estrogen containing OCs. Her maternal GM had a DVT in her elderly years. 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 She presents to discuss mgmt. Review Of Systems Skin: negative Eyes: negative Ears/Nose/Throat: negative Respiratory: No shortness of breath, dyspnea on exertion, cough, or hemoptysis Cardiovascular: positive for persistent tachycardia predating her SVT for one year prior to recnet SVT Gastrointestinal: negative Genitourinary: negative Musculoskeletal: positive for improving RLE pain and tightness Neurologic: negative Psychiatric: negative Hematologic/Lymphatic/Immunologic: negative Endocrine: negative PAST MEDICAL HISTORY: No past medical history on file. PAST SURGICAL HISTORY: No past surgical history on file. CURRENT MEDICATIONS: No current outpatient medications on file. ALLERGIES: Not on File SOCIAL HISTORY: Social History Socioeconomic History Marital status: Spouse [...] Housing Stability: Not on file FAMILY HISTORY: No family history on file. Physical exam Reveals: O/P: WNL HEENT: WNL NECK: No JVD, thyromegaly, or lymphadenopathy HEART: RRR, no murmurs, gallops, or rubs LUNGS: CTA bilaterally without rales, wheezes, or rhonchi GI: NABS, nondistended, nontender, soft EXT:without cyanosis, clubbing, or edema 430 mm Rt calf circumference, 420 mm Lt calf circumference. NEURO: nonfocal : no flank tenderness A/P; (I82.811) Acute superficial venous thrombosis of lower [...] favor increasing the dose to 20 mg daily.l As she had a large volume of clot initially and is young, I would prefer a twelve week course of AC a supposed to six weeks for SVT. Near 04/04/23, check d dimer and venous comp study. Wear compression to the thigh high location. Call me for any leg concerns. If in 04/05 I decide to take her off of AC at that time based upon interval labs and imaging, I would test a d dimer and APLAs after off of AC for one month. Plan: rivaroxaban ANTICOAGULANT (XARELTO) 10 MG TABS tablet, Compression Sleeve/Stocking Order for DME - ONLY FOR DME 75 minutes total medical care on today's date. documented in this encounter Miscellaneous Notes * Addendum Note - Radha Avila RN - 01/25/2023 3:10 PM CDTAddended by: RADHA AVILA on: 01/30/2023 02:14 PM Modules accepted: Orders documented in this encounter Plan of Treatment Scheduled Referrals Name Type Priority Associated Diagnoses Orde r Schedule Follow-Up with Vascular Medicine Referral Routine: Next available opening Acute superficial venous thrombosis of lower extremity, right Expected: 04/04/2023 (Approximate), Expires: 06/13/2023 documented as of this encounter Results * US Venous Competency Bilateral (04/04/2023 12:08 PM SALES ACCOUNT LEADER) Anatomical Region Laterality Modality Lower Extremity Ultrasound Impressions 04/09/2023 10:49 AM SALES ACCOUNT LEADER Examined by: Freddy Doan RVT Age: ??37 [...] Perforators: there is no evidence of incompetent bituminous distributor operator veins at any level. LEFT: The deep [...] Perforators: there is no evidence of incompetent bituminous distributor operator veins at any level. FINAL SUMMARY: Right lower extremity: Deep veins 1. ??No deep vein thrombosis 2. ??Common femoral and mid femoral vein incompetence, otherwise the deep vein valves are competent Superficial veins 1. ??Chronic, nonocclusive thrombus right proximal to mid calf great saphenous vein 2. ??Saphenofemoral junction through proximal calf great saphenous vein incompetence 3. ??Proximal calf small saphenous vein incompetence Sausage Canner veins No incompetent perforators Left lower extremity: Deep veins 1. ??No deep vein thrombosis 2. ??Proximal femoral vein incompetence, otherwise the deep vein valves are competent Superficial veins 1. ??No superficial thrombophlebitis 2. ??Proximal to mid femoral and proximal calf great saphenous vein incompetence. ??A large, incompetent varicosity courses from the thigh great saphenous vein down to the medial calf Sausage Canner veins No incompetent perforators Incompetence Criteria: greater than 500 milliseconds in superficial and bituminous distributor operator veins and greater than 1000 milliseconds in deep veins. C Davin Arrington MD, FACS Narrative 04/09/2023 10:49 AM SALES ACCOUNT LEADER Name: ??Kun Wu ? Date: April 04, 2023 ?: 1985 Sex: female Burton Barragan MD IMG ORDER MAR documented in this encounter Visit Diagnoses Diagnosis Acute superficial venous thrombosis of lower extremity, right- Primary Acute superficial venous thrombosis of lower extremity, right documented in this encounter Care Teams Quality Lead Relationship Specialty Start Date End Date Sherice Lange NP [address] [address] PCP - General 01/25/23 documented as of this encounter
== END 2023-06-07 08:36 | disposition home or self-care (01) ==
PROVIDERS: PCP Nurse Practitioner Family; Visit Provider Nurse Practitioner Family
DX: Z00.00 Encounter for general adult medical examination without abnormal findings (principal); E66.9 Obesity, unspecified; R63.5 Abnormal weight gain; Z13.0 Encounter for screening for diseases of the blood and blood-forming organs and certain disorders involving the immune mechanism; Z13.6 Encounter for screening for cardiovascular disorders; Z51.81 Encounter for therapeutic drug level monitoring
CPT/HCPCS: 80061; 80076; 84443; 85025

== ENCOUNTER 2023-08-27 17:50 | Outpatient (CLI) | payer BC, SELFPAY ==
--- OUTSIDE RECORDS SUMMARY | 2023-08-27 17:52 | XMS_ITS | Encounter Summary ---
Author Name Unknown Organization [facility] Address [address] [place] [address]. [place] [address] Care Team Providers Care Deputy Director Of Nursing Name Role Phone Sherice Lange NP Primary Care Provider [phone] Burton Barragan MD Unavailable + [phone] Encounter Details Date Type Department Care Team (Late st Contact Info) Description 01/11/2023 MyC Medical Advice [facility] [place] [address] [place] [phone] [facility] Social History Tobacco Use Types Packs/Day Years Used Date Smoking Tobacco: Never Assessed Sex and Gender Information Value Date Recorded Sex Assigned at Female 01/25/2023 9:48 AM CDT Gender Identity Female 01/25/2023 9:48 AM CDT Sexual Orientation Bisexual 01/25/2023 9: 48 AM CDT documented as of this encounter Plan of Treatment Upcoming Encounters Date Type Department Care Team (Late st Contact Info) Description 09/04/2023 8:00 AM CDT [facility] [address] [facility] [address] [place] [phone] Burton Barragan MD [address] [place] [address] 09/04/2023 9:45 AM CDT Lab [facility] [address] [place] [phone] 09/10/2023 2:40 PM CDT Office Visit [facility] [place] [address] [place] [phone] Burton Barragan MD [address] [place] [address] documented as of this encounter Visit Diagnoses Not on filedocumented in this encounter Care Teams Deputy Director Of Nursing Relationship Specialty Start Date End Date Sherice Lange NP [address] [address] PCP - General 01/25/23 Burton Barragan MD [address] [place] [address] Assigned Heart and Vascular Provider 02/03/23 documented as of this encounter
--- OUTSIDE RECORDS SUMMARY | 2023-08-27 17:52 | XMS_ITS | Clinical Summary ---
Author Name Unknown Organization [facility] Address [place], [place] [address] Care Team Providers Care Gas Pit Worker Name Role Phone None Unavailable Unavailable Pcp, [...] by mouth 4 times daily if needed. Active dextromethorphan polistirex (DELSYM 12 HOUR ORAL) Take 5-10 mL by mouth every 12 hours if needed. Active benzonatate (TESSALON) 200 mg capsuleIndication s:Cellulitis and abscess of right leg Take 1 capsule by mouth 3 times daily if needed. 15 capsule 01/10/2018 Active lisdexamfetamine dimesylate (VYVANSE ORAL) Take by mouth. Active HYDROcodone-aceta minophen (NORCO) 5-325 mg per tabletIndications :Basal cell carcinoma (BCC) of medial canthus of right eye Take 1-2 Tablets by mouth every 4 hours if needed for Pain. Max acetaminophen dose: 4000 mg in 24 hrs. 20 Tablet 05/17/2022 Active ARIPiprazole (ABILIFY) 5 mg tablet 12/27/2022 Active methylphenidate 54 mg ER tablet (CONCERTA BRAND ONLY) Take 54 mg by mouth once daily. Active cloNIDine 0.1 mg/24 hr ([id number]-[id number]-3) 0.1 mg/24 hr patch Apply 1 Patch on dry, clean, hairless skin once weekly. Active drospirenone-ethi nyl estradioL (ADRIEN) 3-0.02 mg tablet Take 1 Tablet by mouth once daily. Active Active Problems Problem Noted Date Diagnosed [...] 171.5 cm (5' 7.5) 05/17/2022 9:51 AM EMERGENCY CARE ATTENDANT Body Mass Index 37.81 05/17/2022 9:51 AM EMERGENCY CARE ATTENDANT Plan of Treatment Health Maintenance Due Date Last Done Comments Depression screening for age 12+ 1999 HIV for age 15-65 10/05/2002 BMI (ht and wt on same day) for age 18+ 10/05/2005 Hepatitis C screening for ag e 18-79 10/05/2005 Pap test for age 21-65 10/05/2008 Tetanus booster 04/26/2019 04/26/2009, 09/27/1999 COVID-19 vaccine series (2022- season) 2023 Influenza for age 9-49 01/13/2024 04/26/2009 Tdap Completed 04/26/2009, 09/27/1999 Pneumococcal series for age 6-64 Aged Out No longer eligible b ased on patient's age to complete this topic Advance Directives * Full Code (Latest Code Status on File) Date Activated Date Inactivated Comments 05/17/2022 9:27 AM 05/17/2022 3:58 PM Question Answer Comments Code Status Discussion: Other not disc ussed * Full Code Date Activated Date Inactivated Comments 01/08/2018 1:27 AM 01/10/2018 12:43 PM Question Answer Comments Code Status Discussion: Not Discussed * Full Code Date Activated Date Inactivated Comments 01/08/2018 1:27 AM 01/08/2018 1:27 AM Question Answer Comments Code Status Discussion: Not Discussed Care Teams Gas Pit Worker Relationship Specialty Start Date End Date Pcp, No . PCP - General 04/28/22 None . 01/07/18
--- OUTSIDE RECORDS SUMMARY | 2023-08-27 17:52 | XMS_ITS | Encounter Summary ---
Author Name Unknown Organization [facility] Address [address] [place] [address]. [place] [address] Care Team Providers Care Home Based Assistant Name Role Phone Sherice Lange NP Primary Care Provider Burton Barragan MD Unavailable + [phone] Encounter Details Date Type Department Care Team (Late st Contact Info) Description 01/19/2023 MyC Medical Advice [facility] [place] [address] [place] [phone] [facility] Social History Tobacco Use Types Packs/Day Years [...] Description 09/04/2023 8:00 AM CDT [facility] [address] [facility] [address] [place] [phone] Burton Barragan MD [address] [place] [address] 09/04/2023 9:[address] [facility] [address] [place] [phone] 09/10/2023 2:40 PM CDT Office Visit [facility] [place] [address] [place] [phone] Burton Barragan MD [address] [place] [address] documented as of this encounter Visit Diagnoses Not on filedocumented in this encounter Care Teams Home Based Assistant Relationship Specialty Start Date End Date Sherice Lange NP [address] [address] PCP - General 01/25/23 Burton Barragan MD [address] [place] [address] Assigned Heart and Vascular Provider 02/03/23 documented as of this encounter
--- OUTSIDE RECORDS SUMMARY | 2023-08-27 17:52 | XMS_ITS | Clinical Summary ---
Author Name Unknown Organization [place] Address [address] [place] [address] Care Team Providers Care Transplant Case Manager Name Role Phone Shercie Lange NP Primary Care Provider Burton Barragan MD Unavailable +1- [phone] Allergies No known active allergies Medications Medication Sig Dispensed Refills Start Date End Date Status CloNIDine ER (KAPVAY) 0.1 MG 12 hr tablet TAKE 4 TABLET BY MOUTH EVERY EVENING 01/03/2023 Active ARIPiprazole (ABILIFY) 5 MG tablet 12/27/2022 Active Methylphenidate HCl (METHYLPHENIDATE ER, NON-OSM,) 54 MG 24H tablet Take 54 mg by mouth Active rivaroxaban ANTICOAGULANT (XARELTO) 10 MG TABS [...] Comments Blood Pressure 118/80 04/16/2023 9:06 AM SENIOR MANUFACTURING TEST ENGINEER Pulse 79 04/16/2023 9:06 AM SENIOR MANUFACTURING TEST ENGINEER Temperature - - Respiratory Rate - - Oxygen Saturation 99% 04/16/2023 9:06 AM SENIOR MANUFACTURING TEST ENGINEER Inhaled Oxygen Concentration - - Weight 117.6 kg (259 lb 3.2 oz) 04/16/2023 9:06 AM SENIOR MANUFACTURING TEST ENGINEER Height 171.5 cm (5' 7.5) 04/16/2023 9:06 AM SENIOR MANUFACTURING TEST ENGINEER Body Mass Index 40 04/16/2023 9:06 AM SENIOR MANUFACTURING TEST ENGINEER Plan of Treatment Upcoming Encounters Date Type Department Care Team (Late st Contact Info) Description 09/04/2023 8:00 AM CDT Ancillary Procedure [facility] [address] [facility] [address] [place] [phone] Burton Barragan MD [address] [place] [address] 09/04/2023 9:45 AM CDT Lab [facility] [address] [place] [address] 09/10/2023 2:40 PM CDT Office Visit [facility] [place] [address] [place] [address] Burton Barragan MD [address] [place] [address] Health Maintenance Due Date Last Done Comments ADVANCE CARE PLANNING 1985 ANNUAL REVIEW OF HM ORDERS 1987 YEARLY PREVENTIVE VISIT 1985 HEPATITIS B IMMUNIZATION (3 of 3 - 3-dose series) 11/22/1999 09/27/1999, 01/08/1997 HIV SCREENING 10/05/2002 HEPATITIS C SCREENING 10/05/2005 PAP 10/05/2008 PHQ-2 (once per calendar year) 2023 GLUCOSE 01/05/2026 01/05/2023 DTAP/TDAP/TD IMMUNIZATION (10 - Td or Tdap) 11/12/2030 11/12/2020, 04/26/2009, 09/27/1999, Additional history exists IPV IMMUNIZATION Completed 12/22/1992, , 02/01/1988, Additional history exists HPV IMMUNIZATION Completed 02/14/2013, 11/2010, 04/26/2009 COVID-19 Vaccine Completed 06/07/2023 INFLUENZA VACCINE Completed 06/07/2023, , 04/26/2009 MENINGITIS IMMUNIZATION Aged Out No l [...] Procedure Name Priority Date/Time Associated Diagnosis Comments GLUCOSE (EXTERNAL RESULT) Routine 01/05/2023 8:55 AM CDT from Last 3 Months or Most Recently Relevant to Health Maintenance Results * Glucose (External Result) (01/05/2023 8:55 AM CDT) Glucose (External) 100 60 - 115 mg/dL [facility] Blood 01/05/2023 8:55 AM CDT Narrative [facility] - 01/05/2023 8:55 AM CDT [facility] Lab Result Provider Outside LAB - HIM EXTERNAL R ESULT [facility] [address] [place] [address], [facility] [phone] from Last 3 Months or Most Recently Relevant to Health Maintenance Care Teams Transplant Case Manager Relationship Specialty Start Date End Date Sherice Lange NP [address] [address] PCP - General 01/25/23 Burton Barragan MD [address] [place] [address] Assigned Heart and Vascular Provider 02/03/23
--- OUTSIDE RECORDS SUMMARY | 2023-08-27 17:52 | XMS_ITS | Referral Summary ---
Author Name Unknown Organization [place] Address [address] [place] [address] Care Team Providers Care Medical Professionals Name Role Phone Sherice Lange NP Primary Care Provider Burton Barragan MD Unavailable +1- [phone] Allergies No known active allergies Medications Medication [...] Comments Blood Pressure 118/80 04/16/2023 9:06 AM LOOPING MACHINE OPERATOR Pulse 79 04/16/2023 9:06 AM LOOPING MACHINE OPERATOR Temperature - - Respiratory Rate - - Oxygen Saturation 99% 04/16/2023 9:06 AM LOOPING MACHINE OPERATOR Inhaled Oxygen Concentration - - Weight 117.6 kg (259 lb 3.2 oz) 04/16/2023 9:06 AM LOOPING MACHINE OPERATOR Height 171.5 cm (5' 7.5) 04/16/2023 9:06 AM LOOPING MACHINE OPERATOR Body Mass Index 40 04/16/2023 9:06 AM LOOPING MACHINE OPERATOR Plan of Treatment Upcoming Encounters Date Type Department Care Team (Late st Contact Info) Description 09/04/2023 8:00 AM CDT Ancillary Procedure [facility] [address] [facility] [address] [place] [address] Burton Barragan MD [address] [place] [address] 09/04/2023 9:45 AM CDT Lab [facility] Laboratory [address] [place] [address] 09/10/2023 2:40 PM CDT Office Visit [facility] [place] [address] [place] [address] Burton Barragan MD [address] [place] [address] Procedures Procedure Name Priority Date/Time Associated Diagnosis Comments GLUCOSE (EXTERNAL RESULT) Routine 01/05/2023 8:55 AM CDT from Last 3 Months or Most Recently Relevant to Health Maintenance Results * Glucose (External Result) (01/05/2023 8:55 AM CDT) Glucose (External) 100 60 - 115 mg/dL [facility] Blood 01/05/2023 8:55 AM CDT Narrative [facility] - 01/05/2023 8:55 AM CDT [facility] Lab Result Provider Outside LAB - HIM EXTERNAL R ESULT [facility] [address] [place] [address], [facility] [phone] from Last 3 Months or Most Recently Relevant to Health Maintenance Care Teams Medical Professionals Relationship Specialty Start Date End Date Sherice Lange NP [facility] [address] [place] [address] PCP - General 01/25/23 Burton Barragan MD [address] [place] [address] Assigned Heart and Vascular Provider 02/03/23
--- OUTSIDE RECORDS SUMMARY | 2023-08-27 17:52 | XMS_ITS | Encounter Summary ---
Author Name Unknown Organization [place] Address [address] [place] [address]. [place] [address] Care Team Providers Care Cofferdam Construction Supervisor Name Role Phone Sherice Lange NP Primary Care Provider Burton Barragan MD Unavailable + [phone] Encounter Details Date Type Department Care Team (Late st Contact Info) Description 01/11/2023 MyC Medical Advice [facility] [place] [address] [place] [phone] [facility] Social History Tobacco Use Types Packs/Day Years [...] 09/04/2023 8:00 AM CDT Ancillary [facility] [address] [facility] [address] [place] [phone] Burton Barragan MD [address] [place] [address] 09/04/2023 9:45 AM CDT Lab [facility] [address] [place] [phone] 09/10/2023 2:40 PM CDT Office Visit [facility] [place] [address] [place] [address] Burton Barragan MD [address] [place] [address] documented as of this encounter Visit Diagnoses Not on filedocumented in this encounter Care Teams [employer]fferdam Construction Supervisor Relationship Specialty Start Date End Date Sheriec Lange NP [address] [address] PCP - General 01/25/23 Burton Barragan MD [address] [place] [address] Assigned Heart and Vascular Provider 02/03/23 documented as of this encounter
--- NOTE | 2023-08-27 18:15 | MR_ITS ---
Patient: MARISELA PHAN Facility:?[facility] R[facility] Patient ID:?[id number] Site Patient ID:?[id number]. Site :?1985 Study:?MRI-Spine Cervical WO-08/27/2023 6:28:58 PM Ordering Physician:ROSY Final Report: INDICATION: Neck pain TECHNIQUE: Noncontrast sagittal T1, T2, STIR and axial GRE sequences are provided. No comparisons. FINDINGS: The overall stature, alignment and intrinsic marrow signal of the cervical spine is within normal limits. Cervical cord is normal. C5-6: There is a right lateral recess/intra foraminal disc protrusion that extends proximally 3 millimeters beyond the posterior vertebral body margin resulting in severe right foraminal and compression of the exiting right C6 nerve root. Very mild rightward eccentric central canal narrowing with no left foraminal narrowing. C6-7: Minor posterior disc bulge effaces the ventral thecal sac but results in no central canal or foraminal narrowing. Remainder of the cervical spine is unremarkable, specifically no evidence of suspicious central canal or foraminal narrowing. IMPRESSION: 1. Severe right foraminal narrowing at C5-6 due to a right lateral recess/intra foraminal disc protrusion compressing the exiting right C6 nerve root. 2. Milder degenerative changes as outlined above. Dictated by Maynor Brown MD @ 08/27/2023 8:15:31 PM Signed by:?Maynor Brown MD @08/27/2023 8:15:31 PM (Electronic Signature)
== END 2023-08-27 17:51 | disposition home or self-care (01) ==
LOC: MRI 17:51
PROVIDERS: PCP Nurse Practitioner Family; Visit Provider Nurse Practitioner Family
DX: M54.2 Cervicalgia (principal); M50.222 Other cervical disc displacement at C5-C6 level
CPT/HCPCS: 72141

== ENCOUNTER 2023-08-31 15:07 | Outpatient (CLI) | payer BC, SELFPAY ==
--- OUTSIDE RECORDS SUMMARY | 2023-08-31 15:09 | XMS_ITS | Encounter Summary ---
Author Name Unknown Organization [place] Address [address] [place] [address]. [place] [address] Care Team Providers Care Bulb Planter Name Role Phone Sherice Lange NP Primary Care Provider Burton Barragan MD Unavailable + [phone] Encounter Details Date Type Department Care Team (Late st Contact Info) Description 01/11/2023 MyC Medical Advice [facility] [place] [address] [place] [phone] [facility] Social History Tobacco Use Types Packs/Day Years Used Date Smoking Tobacco: Never Assessed Sex and Gender Information Value Date Recorded Sex Assigned at Female 01/25/2023 9:48 AM CDT Gender Identity Female 01/25/2023 9:48 AM CDT Sexual Orientation Bisexual 01/25/2023 9: 48 AM CDT Travel History Travel Start Travel End [place] 08/07/2023 08/12/2023 documented as of this encounter Plan of Treatment Upcoming Encounters Date Type Department Care Team (Late st Contact Info) Description 09/04/2023 8:00 AM CDT Ancillary Procedure [facility] [address] [facility] [address] [place] [phone] Burton Barragan MD [address] [place] [address] 09/04/2023 9:45 AM CDT Lab [facility] [address] [place] [address] 09/10/2023 2:40 PM CDT Office Visit [facility] [place] [address] [place] [phone] Burton Barragan MD [address] [place] [address] documented as of this encounter Visit Diagnoses Not on filedocumented in this encounter Care Teams Bulb Planter Relationship Specialty Start Date End Date Sherice Lange NP [address] [address] PCP - General 01/25/23 Burton Barragan MD [address] [place] [address] Assigned Heart and Vascular Provider 02/03/23 documented as of this encounter
--- OUTSIDE RECORDS SUMMARY | 2023-08-31 15:09 | XMS_ITS | Encounter Summary ---
Author Name Unknown Organization [place] Address [address] [place] [address]. [place] [address] Care Team Providers Care Eye Specialist Name Role Phone Sherice Lange NP Primary Care Provider Burton Barragan MD Unavailable +- [phone] Encounter Details Date Type Department Care Team (Latest Contact Info) Description 08/28/2023 Travel Social History Tobacco Use Types Packs/Day [...] CDT Travel History Travel Start Travel End [place] 08/07/2023 08/12/2023 documented as of this encounter Plan of Treatment Upcoming Encounters Date Type Department Care Team (Late st Contact Info) Description 09/04/2023 8:00 AM CDT Ancillary Procedure [facility] [address] [facility] [address] [place] [phone] Burton Barragan MD [address] [facility] [address] [place] [id number] 09/04/2023 9:45 AM CDT Lab [facility] [address] [place] [address] 09/10/2023 2:40 PM CDT Office Visit [facility] [place] [address] [place] [phone] Burton Barragan MD [address] [place] [address] documented as of this encounter Visit Diagnoses Not on filedocumented in this encounter Care Teams Eye Specialist Relationship Specialty Start Date End Date Sherice Lange NP [address] [address] PCP - General 01/25/23 Burton Barragan MD [address] [place] [address] Assigned Heart and Vascular Provider 02/03/23 documented as of this encounter
--- OUTSIDE RECORDS SUMMARY | 2023-08-31 15:09 | XMS_ITS | Referral Summary ---
Author Name Unknown Organization [place] Address [address] [place] [address] Care Team Providers Care Market Development Executive Name Role Phone Sherice Lange NP Primary Care Provider Burton Barragan MD Unavailable +1- [phone] Encounters Date Type Department Care Team Description 08/28/2023 Travel from Last 3 Months Allergies No known [...] CDT Travel History Travel Start Travel End [place] 08/07/2023 08/12/2023 Last Filed Vital Signs Vital Sign Reading Time Taken Comments Blood Pressure 118/80 04/16/2023 9:06 AM FAST BRIM POUNCER Pulse 79 04/16/2023 9:06 AM FAST BRIM POUNCER Temperature - - Respiratory Rate - - Oxygen Saturation 99% 04/16/2023 9:06 AM FAST BRIM POUNCER Inhaled Oxygen Concentration - - Weight 117.6 kg (259 lb 3.2 oz) 04/16/2023 9:06 AM FAST BRIM POUNCER Height 171.5 cm (5' 7.5) 04/16/2023 9:06 AM FAST BRIM POUNCER Body Mass Index 40 04/16/2023 9:06 AM FAST BRIM POUNCER Plan of Treatment Upcoming Encounters Date Type Department Care Team (Late st Contact Info) Description 09/04/2023 8:00 AM CDT Ancillary Procedure [facility] [address] [facility] [address] [place] [phone] Burton Barragan MD [address] [place] [address] 09/04/2023 9:45 AM CDT Lab [facility] [address] [place] [phone] 09/10/2023 2:40 PM CDT Office Visit [facility] [place] [address] [place] [phone] Burton Barragan MD [address] [place] [address] Procedures Procedure Name Priority Date/Time Associated Diagnosis Comments GLUCOSE (EXTERNAL RESULT) Routine 01/05/2023 8:55 AM CDT from Last 3 Months or Most Recently Relevant to Health Maintenance Results * Glucose (External Result) (01/05/2023 8:55 AM CDT) Glucose (External) 100 60 - 115 mg/dL [facility] Blood 01/05/2023 8:55 AM CDT Narrative [facility] - 01/05/2023 8:55 AM CDT [facility] Lab Result Provider Outside LAB - HIM EXTERNAL R ESULT [facility] [address] [place] [address], [facility] [phone] from Last 3 Months or Most Recently Relevant to Health Maintenance Care Teams Market Development Executive Relationship Specialty Start Date End Date Sherice Lange NP [facility] [address] [place] [address] PCP - General 01/25/23 Burton Barragan MD [address] [place] [address] Assigned Heart and Vascular Provider 02/03/23
--- OUTSIDE RECORDS SUMMARY | 2023-08-31 15:09 | XMS_ITS | Clinical Summary ---
Author Name Unknown Organization [facility] Address [place], [place] [address] Care Team Providers Care Molded Goods Operator Name Role Phone None Unavailable Unavailable Pcp, [...] once daily. Active cloNIDine 0.1 mg/24 hr ([id number]) 0.1 mg/24 hr patch Apply 1 Patch [...] 171.5 cm (5' 7.5) 05/17/2022 9:51 AM REAL ESTATE APPRAISER Body Mass Index 37.81 05/17/2022 9:51 AM REAL ESTATE APPRAISER Plan of Treatment Health Maintenance Due Date [...] Code Status Discussion: Not Discussed Care Teams Molded Goods Operator Relationship Specialty Start Date End Date Pcp, No . PCP - General 04/28/22 None . 01/07/18
--- OUTSIDE RECORDS SUMMARY | 2023-08-31 15:09 | XMS_ITS | Encounter Summary ---
Author Name Unknown Organization [place] Address [address] [place] [address]. [place] [address] Care Team Providers Care Swimming Pool Serviceperson Name Role Phone Sherice Lange NP Primary Care Provider Burton Barragan MD Unavailable + [phone] Encounter Details Date Type Department Care Team (Late st Contact Info) Description 01/19/2023 MyC Medical Advice [facility] [place] [address] [place] [phone] [facility] Social History Tobacco Use Types Packs/Day Years Used Date Smoking Tobacco: Never Assessed Sex and Gender Information Value Date Recorded Sex Assigned at Female 01/25/2023 9:48 AM CDT Gender Identity Female 01/25/2023 9:48 AM CDT Sexual Orientation Bisexual 01/25/2023 9: 48 AM CDT Travel History Travel Start Travel End [place] 08/07/2023 08/12/2023 documented as of this encounter Plan of Treatment Upcoming Encounters Date Type Department Care Team (Late st Contact Info) Description 09/04/2023 8:00 AM CDT [facility] [address] [facility] [address] [place] [phone] Burton Barragan MD [address] [place] [address] 09/04/2023 9:45 AM CDT Lab [facility] [address] [place] [address] 09/10/2023 2:40 PM CDT Office Visit [facility] [place] [address] [place] [phone] Burton Barragan MD [address] [place] [address] documented as of this encounter Visit Diagnoses Not on filedocumented in this encounter Care Teams Swimming Pool Serviceperson Relationship Specialty Start Date End Date Sherice Lange NP [address] [address] PCP - General 01/25/23 Burton Barragan MD [address] [place] [address] Assigned Heart and Vascular Provider 02/03/23 documented as of this encounter
--- OUTSIDE RECORDS SUMMARY | 2023-08-31 15:09 | XMS_ITS | Encounter Summary ---
Author Name Unknown Organization [place] Address [address] [place] [address]. [place] [address] Care Team Providers Care Plant Electrical Engineer Name Role Phone Sherice Lange NP Primary Care Provider Burton Barragan MD Unavailable + [phone] Encounter Details Date Type Department Care Team (Late st Contact Info) Description 01/11/[address] [facility] [place] [address] [place] [phone] [facility] Social History Tobacco Use Types Packs/Day Years Used Date Smoking Tobacco: Never Assessed Sex and Gender Information Value Date Recorded Sex Assigned at Female 01/25/2023 9:48 AM CDT Gender Identity Female 01/25/2023 9:48 AM CDT Sexual Orientation Bisexual 01/25/2023 9: 48 AM CDT Travel History Travel Start Travel End [place] 08/07/2023 08/12/2023 documented as of this encounter Plan of Treatment Upcoming Encounters Date Type Department Care Team (Late st Contact Info) Description 09/04/2023 8:00 AM CDT [facility] [address] [facility] [address] [place] [phone] Burton Barragan MD [address] [place] [address] 09/04/2023 9:45 AM CDT Lab [facility] [address] [place] [address] 09/10/2023 2:40 PM CDT Office Visit [facility] [place] [address] [place] [phone] Burton Barragan MD [address] [place] [address] documented as of this encounter Visit Diagnoses Not on filedocumented in this encounter Care Teams Plant Electrical Engineer Relationship Specialty Start Date End Date Sherice Lange NP [address] [address] PCP - General 01/25/23 Burton Barragan MD [address] [place] [address] Assigned Heart and Vascular Provider 02/03/23 documented as of this encounter
--- OUTSIDE RECORDS SUMMARY | 2023-08-31 15:09 | XMS_ITS | Clinical Summary ---
Author Name Unknown Organization [place] Address [address] [place] [address] Care Team Providers Care Stereo Equipment Repairer Name Role Phone Sherice Lange NP Primary Care Provider Burton Barragan MD Unavailable +1- [phone] Allergies No known active allergies Medications Medication [...] Description 08/28/2023 Travel from Last 3 Months Social History [...] CDT Travel History Travel Start Travel End [place] 08/07/2023 08/12/2023 Last Filed Vital Signs Vital Sign Reading Time Taken Comments Blood Pressure 118/80 04/16/2023 9:06 AM RN MEDICARE Pulse 79 04/16/2023 9:06 AM RN MEDICARE Temperature - - Respiratory Rate - - Oxygen Saturation 99% 04/16/2023 9:06 AM RN MEDICARE Inhaled Oxygen Concentration - - Weight 117.6 kg (259 lb 3.2 oz) 04/16/2023 9:06 AM RN MEDICARE Height 171.5 cm (5' 7.5) 04/16/2023 9:06 AM RN MEDICARE Body Mass Index 40 04/16/2023 9:06 AM RN MEDICARE Plan of Treatment Upcoming Encounters Date Type Department Care Team (Late st Contact Info) Description 09/04/2023 8:00 AM CDT Ancillary Procedure [facility] [address] [facility] [address] [place] [address] Burton Barragan MD [address] [place] [address] 09/04/2023 9:45 AM CDT Lab [facility] [address] [place] [address] 09/10/2023 2:40 PM CDT Office Visit [facility] [place] [address] [place] [address] Burton Barragan MD [address] [place] [address] Health Maintenance Due Date Last Done Comments [...] Glucose (External) 100 60 - 115 mg/dL [facility] Blood 01/05/2023 8:55 AM CDT Narrative [facility] - 01/05/2023 8:55 AM CDT [facility] Lab Result Provider Outside LAB - HIM EXTERNAL R ESULT [facility] [address] [place] [address], [facility] [phone] from Last 3 Months or Most Recently Relevant to Health Maintenance Care Teams Stereo Equipment Repairer Relationship Specialty Start Date End Date Sherice Lange NP [facility] [address] [place] [address] PCP - General 01/25/23 Burton Barragan MD [address] [place] [address] Assigned Heart and Vascular Provider 02/03/23
--- NOTE | 2023-08-31 15:20 | MM_ITS ---
Patient: MARISELA PHAN Facility:?[facility] RIS Patient ID:?[id number] Site Patient ID:?[id number]. Site :?1985 Study:?XRay-Breast Bilateral 3D w/CAD-08/31/2023 3:26:59 PM Ordering Physician:deion Final Report: BILATERAL SCREENING MAMMOGRAM WITH COMPUTER-AIDED DETECTION AND TOMOSYNTHESIS TECHNIQUE: CC and MLO views were obtained. These mammographic images have been obtained using full-field digital technique. These mammographic images were interpreted with the benefit of computer-aided detection. Breast tomosynthesis was used in this interpretation. COMPARISON FILM: None. This is a baseline study. FINDINGS: There are scattered areas of fibroglandular density. IMPRESSION: There is no radiographic evidence for malignancy. ASSESSMENT: BI-RADS Category 1: Negative RECOMMENDATION: Annual mammograms beginning at age 40. A lay language report of this examination will be provided to the patient. MARIELA JOHNSON M.D. Diagnostic Radiologist [email or web address] TONI/yessenia D& Transcribed: 3:[address]/Dictated by: Mariela Johnson MD @ 09/04/2023 12:25:00 PM Signed by:?Mariela Johnson MD @09/04/2023 9:34:28 PM (Electronic Signature)
== END 2023-08-31 15:08 | disposition home or self-care (01) ==
LOC: MAMMO 15:08
PROVIDERS: PCP Nurse Practitioner Family; Visit Provider Nurse Practitioner Family
DX: Z12.31 Encounter for screening mammogram for malignant neoplasm of breast (principal)
CPT/HCPCS: 77063; 77067

== ENCOUNTER 2023-10-09 17:40 | Outpatient (REF) | payer BC, SELFPAY ==
--- OUTSIDE RECORDS SUMMARY | 2023-10-09 17:42 | XMS_ITS | Clinical Summary ---
Author Organization [employer] [facility] Address [place], [place] [address] Care Team Providers Care Crystal Grinder Name Role Phone None Unavailable Unavailable Pcp, [...] once daily. Active cloNIDine 0.1 mg/24 hr ([id number]) 0.1 mg/24 hr patch Apply 1 Patch on dry, clean, hairless skin once weekly. Active drospirenone-ethi nyl estradioL (ADRIEN) 3-0.02 mg tablet Take 1 Tablet by mouth once daily. Active Active Problems Problem Noted Date Diagnosed Date Basal cell carcinoma (BCC) of medial canthus 08/2022 Cough in adult 01/08/2018 Cellulitis of right lower extremity 01/07/2018 Class 3 obesity in adult 01/07/2018 Myopia 10/14/2012 Encounters Date Type Department Care Team Description 09/24/2023 10:00 AM CDT [facility] [address] [place] [address] Roel Bravo MD 08/27/2023 Orders Only [facility] Scanner 1 scan: (1-Ord) [facility], CERVICAL SPINE WO CON, 08/27/2023 08/15/2023 Orders Only [facility] Scanner 1 scan: (1-Ord) [facility], CERVICAL S PINE, 08/15/2023 from Last 3 Months Immunizations Name Administration Dates Next Due DTaP [...] 171.5 cm (5' 7.5) 05/17/2022 9:51 AM SUPERVISOR [employer]SEMBL[employer]OCK Body Mass Index 37.81 05/17/2022 9:51 AM [employer]OR [employer] Plan of Treatment Health Maintenance Due Date Last Done Comments Depression screening for age 12+ 1999 HIV for age 15-65 10/05/2002 BMI (ht and wt on same day) for age 18+ 10/05/2005 Hepatitis C screening for ag e 18-79 10/05/2005 Pap test for age 21-65 10/05/2008 Tetanus booster 04/26/2019 04/26/2009, 09/27/1999 Influenza for age 9-49 01/13/2024 04/26/2009 Tdap Completed 04/26/2009, 09/27/1999 COVID-19 vaccine series Completed 06/07/2023 Pneumococcal series for age 6-64 Aged Out No longer eligible b ased on patient's age to complete this topic Procedures Procedure Name Priority Date/Time Associated Diagnosis Comments SCAN-MRI INTERPRETATION 08/27/19 12:00 AM CDT SCAN-RADIOLOGY REPORT 08/15/2023 12:00 AM CDT from Last 3 Months Results * SCAN-MRI INTERPRETATION (08/27/2023 12:00 AM CDT) Anatomical Region Laterality Modality Other Scanner OTHER * SCAN-RADIOLOGY REPORT (08/15/2023 12:00 AM CDT) Anatomical Region Laterality Modality Other Scanner OTHER from Last 3 Months Advance Directives * Full Code (Latest Code [...] Code Status Discussion: Not Discussed Care Teams Crystal Grinder Relationship Specialty Start Date End Date Pcp, No . PCP - General 04/28/22 None . 01/07/18
--- OUTSIDE RECORDS SUMMARY | 2023-10-09 17:43 | XMS_ITS | Encounter Summary ---
Author Organization [place] Address [address] [place] [address]. [place] [address] Care Team Providers Care Petroleum Blending Plant Operator Name Role Phone Sherice Lange NP Primary Care Provider Burton Barragan MD Unavailable + [phone] Encounter Details Date Type Department Care Team (Late st Contact Info) Description 01/11/2023 MyC Medical Advice [facility] [address] [place] [phone] [facility] Social History Tobacco Use Types Packs/Day Years Used Date Smoking Tobacco: Never Assessed Sex and Gender Information Value Date Recorded Sex Assigned at Female 01/25/2023 9:48 AM CDT Gender Identity Female 01/25/2023 9:48 AM CDT Sexual Orientation Bisexual 01/25/2023 9: 48 AM CDT documented as of this encounter Plan of Treatment Upcoming Encounters Date Type Department Care Team (Late Contact Info) Description 10/12/2023 4:50 PM CDT Virtual Visit [facility] [address] [place] [phone] Burton Barragan MD [address] [place] [id number] documented as of this encounter Visit Diagnoses Not on filedocumented in this encounter Care Teams Petroleum Blending Plant Operator Relationship Specialty Start Date End Date Sherice Lange NP [facility] [address] [place] [address] PCP - General 01/25/23 Burton Barragan MD [address] [place] [address] Assigned Heart and Vascular Provider 02/03/23 documented as of this encounter
--- OUTSIDE RECORDS SUMMARY | 2023-10-09 17:43 | XMS_ITS | Encounter Summary ---
Author Organization [place] Address [address] [place] [address]. [place] [address] Care Team Providers Care Die Machine Operator Name Role Phone Sherice Lange NP Primary Care Provider Burton Barragan MD Unavailable + [phone] Encounter Details Date Type Department Care Team [...] Care Team (Late st Contact Info) Description 10/12/2023 4:50 PM CDT Virtual Visit [facility] [place] [address] [place] [phone] Burton Barragan MD [address] [place] [phone] documented as of this encounter Visit Diagnoses Not on filedocumented in this encounter Care Teams Die Machine Operator Relationship Specialty Start Date End Date Sherice Lange NP [address] [address] PCP - General 01/25/23 Burton Barragan MD [address] [place] [address] Assigned Heart and Vascular Provider 02/03/23 documented as of this encounter
--- OUTSIDE RECORDS SUMMARY | 2023-10-09 17:43 | XMS_ITS | Encounter Summary ---
Author Organization [place] Address [address] [place] [address]. [place] [address] Care Team Providers Care Engraver Wood Name Role Phone Sherice Lange NP Primary Care Provider Burton Barragan MD Unavailable + [phone] Encounter Details Date Type Department Care Team (Latest Contact Info) Description 09/04/2023 Travel Social History Tobacco Use Types Packs/Day [...] Description 10/12/2023 4:50 PM CDT Virtual Visit [facility] [place] [address] [place] [phone] Burton Barragan MD [address] [place] [phone] documented as of this encounter Visit Diagnoses Not on filedocumented in this encounter Care Teams Engraver Wood Relationship Specialty Start Date End Date Sherice Lange NP [address] [address] PCP - General 01/25/23 Burton Barragan MD [address] [place] [address] Assigned Heart and Vascular Provider 02/03/23 documented as of this encounter
--- OUTSIDE RECORDS SUMMARY | 2023-10-09 17:43 | XMS_ITS | Encounter Summary ---
Author Organization [place] Address [address] [place] [address]. [place] [address] Care Team Providers Care Dude Ranch Manager Name Role Phone Sherice Lange NP Primary Care Provider Burton Barragan MD Unavailable + [phone] Encounter Details Date Type Department Care Team (Late st Contact Info) Description 01/19/2023 MyC Medical Advice [facility] [address] [place] [phone] [facility] Social History Tobacco Use Types Packs/Day Years [...] Description 10/12/2023 4:50 PM CDT Virtual Visit [facility] [address] [place] [phone] Burton Barragan MD [address] [place] [phone] documented as of this encounter Visit Diagnoses Not on filedocumented in this encounter Care Teams Dude Ranch Manager Relationship Specialty Start Date End Date Sherice Lange NP [facility] [address] [place] [address] PCP - General 01/25/23 Burton Barragan MD [address] [place] [address] Assigned Heart and Vascular Provider 02/03/23 documented as of this encounter
--- OUTSIDE RECORDS SUMMARY | 2023-10-09 17:43 | XMS_ITS | Encounter Summary ---
Author Organization [place] Address [address] [place] [address]. [place] [address] Care Team Providers Care Coyote Hunter Name Role Phone Sherice Lange NP Primary Care Provider Burton Barragan MD Unavailable + [phone] Encounter Details Date Type Department Care Team (Late st Contact Info) Description 09/04/2023 9:45 AM CDT Lab [facility] [address] [place] [phone] Acute superficial venous thrombosis of lower extremity, [...] Description 10/12/2023 4:50 PM CDT Virtual Visit [facility] [place] [address] [place] [phone] Burton Barragan MD [address] [place] [address] documented as of this encounter Procedures Procedure Name Priority Date/Time Associated Diagnosis Comments D DIMER QUANTITATIVE Routine 09/04/2023 9:43 AM CDT Acute superficial venous thrombosis of lower extremity, right documented in this encounter Results * D dimer quantitative (09/04/2023 9:43 AM CDT) D-Dimer Quantitative 0.45 0.00 - 0.50 ug/mL FEU 09/04/2023 2:21 PM CDT [facility] Blood BLOOD SPECIMEN / Unknown Venipuncture / Unknown 09/04/2023 9:43 AM CDT 09/04/2023 9:43 AM CDT Narrative [facility] - 09/04/2023 2:21 PM CDT This D-dimer assay is intended for use in conjunction with a clinical pretest probability assessment model to exclude pulmonary embolism (PE) and deep venous thrombosis (DVT) in outpatients suspected of PE or DVT. The cut-off value is 0.50 ug/mL FEU. Burton Barragan MD LAB - BLOOD ORDERABLES [facility] [address] Lab (no room number, 1st floor of clinic) [place] [address], [facility] [phone] documented in this encounter Visit Diagnoses Diagnosis Acute superficial venous thrombosis of lower extremity, right documented in this encounter Care Teams Coyote Hunter Relationship Specialty Start Date End Date Sherice Lange NP [facility] [address] [place] [address] PCP - General 01/25/23 Burton Barragan MD [address] [place] [id number] Assigned Heart and Vascular Provider 02/03/23 documented as of this encounter
--- OUTSIDE RECORDS SUMMARY | 2023-10-09 17:43 | XMS_ITS | Referral Summary ---
Author Organization [place] Address [address] [place] [address] Care Team Providers Care Employment Law Specialist Name Role Phone Sherice Lange NP Primary Care Provider Burton Barragan MD Unavailable +- [phone] Encounters Date Type Department Care Team Description 09/11/2023 Telephone [facility] [place] [address] [place] [phone] Burton Barragan MD Clinic Care Coordination - Follow-up (08/21/23) 09/10/2023 Travel 09/10/2023 2:40 PM CDT Office Visit [facility] [address] [place] [phone] Burton Barragan MD Acute superficial venous thrombosis of lower extremity, right 09/04/2023 Travel 09/04/2023 9:45 AM CDT Lab [facility] [address] [place] [phone] Acute superficial venous thrombosis of lower extremity, right 09/04/2023 8:00 AM CDT Ancillary Procedure [facility] [address] [facility] [address] [place] [phone] Burton Barragan MD Acute superficial venous thrombosis of lower extremity, right 08/28/2023 Travel from Last 3 Months Allergies [...] (with dinner) 90 tablet 1 04/16/2023 Active ibuprofen (ADVIL/MOTRIN) 200 MG tablet Take 200 mg by mouth Active Social History Tobacco Use Types Packs/Day [...] Sign Reading Time Taken Comments Blood Pressure 125/86 09/10/2023 2:36 PM CDT Pulse 64 09/10/2023 2:36 PM CDT Temperature - - Respiratory Rate - - Oxygen Saturation 100% 09/10/2023 2:36 PM CDT Inhaled Oxygen Concentration - - Weight 124.5 kg (274 lb 6.4 oz) 09/10/2023 2:36 PM CDT Height 172.7 cm (5' 8) 09/10/2023 2:36 PM CDT Body Mass Index 41.72 09/10/2023 2:36 PM CDT Plan of Treatment Upcoming Encounters Date Type Department Care Team (Late st Contact Info) Description 10/12/2023 4:50 PM CDT Virtual Visit [facility] [place] [address] [place] [phone] Burton Barraagn MD [address] [place] [address] Procedures Procedure Name Priority Date/Time Associated Diagnosis Comments D DIMER QUANTITATIVE Routine 09/04/2023 9:43 AM CDT Acute superficial venous thrombosis of lower extremity, right US VENOUS COMPETENCY BILATERAL Routine 09/04/2023 9:37 AM CDT Acute superficial venous thrombosis of lower extremity, right GLUCOSE (EXTERNAL RESULT) Routine 01/05/2023 8:55 AM CDT from Last 3 Months or Most Recently Relevant to Health Maintenance Results * D dimer quantitative (09/04/2023 9:43 [...] Burton Barragan MD LAB - BLOOD ORDERABLES LABORATORY [facility] [address] Lab (no room number, 1st floor of clinic) [place] [address], [facility] [phone] * US Venous Competency Bilateral (09/04/2023 9:37 AM CDT) Anatomical Region Laterality Modality Lower Extremity Ultrasound Impressions 09/05/2023 1:04 PM CDT Examined by: Freddy Doan RVT Age: ??37 year old ? Reading : Milagros Arrington INDICATION:Right acute superficial phlebitis EXAM TYPE BILATERAL LOWER EXTREMITY VENOUS DUPLEX FOR VENOUS INSUFFICIENCY TECHNICAL SUMMARY A duplex ultrasound study using color flow was performed, to evaluate the bilateral lower extremity veins for valvular incompetence with the patient in a steep reversed trendelenberg. RIGHT: The deep veins demonstrate phasic flow, compress and respond to augmentations. ??There is no DVT. ??The common femoral vein is incompetent and free of thrombus. The remaining deep veins are competent and free of thrombus. The proximal calf GSV has a focal (5.2 mm in length) segment with web like thrombus and decreased compression consistent with chronic non-occlusive thrombus. The remaining GSV demonstrates phasic flow, compresses and responds to augmentations thrombus. The great saphenous vein measures 7.7 mm at the saphenofemoral junction, 5.8 mm at the proximal thigh, and 5.1 mm at the knee. The GSV is incompetent from SFJ to Mid Calf, with the greatest reflux time of 5757 milliseconds. ??The GSV gives rise to multiple incompetent varicose veins, the largest measures 4.5 mm off the Mid Thigh that courses toward the knee GSV with a reflux time of 946 milliseconds. The AASV is competent ( 3.8 mm) draining into the saphenofemoral junction. The Giacomini vein is competent ( 1.4 mm) communicating with the small saphenous vein at the knee level. The SSV demonstrates phasic flow, compresses and responds to augmentations from the popliteal space to the ankle. ??No reflux or thrombus is seen. The saphenopopliteal junction is absent. Perforators: there is no evidence of incompetent collaborative physician veins at any level. LEFT: The deep veins demonstrate phasic flow, compress and respond to augmentations. ??There is no ??DVT. ??The common femoral vein is incompetent and free of thrombus. The remaining deep veins are competent and free of thrombus. The GSV demonstrates phasic flow, compresses and responds to augmentations from the saphenofemoral junction to the ankle with no evidence of thrombus. The great saphenous vein measures 7.0 mm at the saphenofemoral junction, 6.0 mm at the proximal thigh, and 3.8 mm at the knee. The GSV is incompetent from SFJ to Mid Thigh and again at the proximal calf, with the greatest reflux time of 6599 milliseconds. ??The GSV gives rise to a varicose branch measuring 7.2 mm off the ??Mid Thigh that courses to proximal calf with a reflux time of 5493 milliseconds. The AASV is competent ( 4.0 mm) draining into the saphenofemoral junction. The Giacomini vein is competent ( 2.5 mm) communicating with the small saphenous vein at the knee level. The SSV demonstrates phasic flow, compresses and responds to augmentations from the popliteal space to the ankle. ??No reflux or thrombus is seen. The saphenopopliteal junction is absent. Perforators: there is no evidence of incompetent collaborative physician veins at any level. FINAL SUMMARY: Vital extremity: Deep veins 1. ??No deep vein thrombosis 2. ??Common femoral vein incompetence Superficial veins 1. ??Focal, chronic, nonocclusive thrombus right thigh great saphenous vein-improved from previous study 2. ??The great saphenous vein is incompetent from the saphenofemoral junction through the mid calf and is the source of incompetent varicosities in the thigh and calf Senior Web Services Developer veins No incompetent perforators Left lower extremity: Deep veins 1. ??No deep vein thrombosis 2. ??Common femoral vein incompetence Superficial veins 1. ??No superficial vein thrombosis 2. ??Saphenofemoral junction through mid thigh and proximal calf great saphenous vein incompetence. ??A incompetent varicosity branches from the great saphenous vein in the thigh coursing to the Senior Web Services Developer veins No incompetent perforators Incompetence Criteria: greater than 500 milliseconds in superficial and collaborative physician veins and greater than 1000 milliseconds in deep veins. C Davin Arrington MD, FACS Narrative 09/05/2023 1:04 PM CDT Name: ??Kun Wu ? Date: September 04, 2023 ? : 1985 Sex: female Burton Barragan MD IMG US ORDER MAR * Glucose (External Result) (01/05/2023 8:55 AM CDT) Glucose (External) 100 60 - 115 mg/dL [facility] Blood 01/05/2023 8:55 AM CDT Narrative [facility] - 01/05/2023 8:55 AM CDT [facility] Lab Result Provider Outside LAB - HIM EXTERNAL R ESULT [facility] [address] [place] [address], [facility] [phone] from Last 3 Months or Most Recently Relevant to Health Maintenance Care Teams Employment Law Specialist Relationship Specialty Start Date End Date Sherice Lange NP [facility] [address] [place] [address] PCP - General 01/25/23 Burton Barragan MD [address] [place] [address] Assigned Heart and Vascular Provider 02/03/23
--- OUTSIDE RECORDS SUMMARY | 2023-10-09 17:43 | XMS_ITS | Encounter Summary ---
Author Organization [place] Address [address] [place] [address]. [place] [address] Care Team Providers Care Engineer Exhauster Name Role Phone Sherice Lange NP Primary Care Provider Burton Barragan MD Unavailable + [phone] Encounter Details Date Type Department Care Team (Late st Contact Info) Description 01/11/2023 MyC Medical Advice [facility] Vascular [facility] [address] [place] [phone] [facility] Social History Tobacco Use Types [...] Description 10/12/2023 4:50 PM CDT Virtual Visit [facility] [address] [place] [phone] Burton Barragan MD [address] [place] [phone] documented as of this encounter Visit Diagnoses Not on filedocumented in this encounter Care Teams Engineer Exhauster Relationship Specialty Start Date End Date Sherice Lange NP [facility] [address] [place] [address] PCP - General 01/25/23 Burton Barragan MD [address] [place] [address] Assigned Heart and Vascular Provider 02/03/23 documented as of this encounter
--- OUTSIDE RECORDS SUMMARY | 2023-10-09 17:43 | XMS_ITS | Encounter Summary ---
Author Organization [place] Address [address] [place] [address]. [place] [address] Care Team Providers Care Planning Director Name Role Phone Sherice Lange NP Primary Care Provider [phone] Burton Barragan MD Unavailable + [phone] Encounter Details Date Type Department Care Team (Latest Contact Info) Description 09/10/2023 Travel Social History Tobacco Use Types Packs/Day [...] CDT Virtual Visit [facility] [place] [address] [place] [phone] Burton Barragan MD [address] [place] [phone] documented as of this encounter Visit Diagnoses Not on filedocumented in this encounter Care Teams Planning Director Relationship Specialty Start Date End Date Sherice Lange NP [address] [address] PCP - General 01/25/23 Burton Barragan MD [address] [place] [address] Assigned Heart and Vascular Provider 02/03/23 documented as of this encounter
--- OUTSIDE RECORDS SUMMARY | 2023-10-09 17:43 | XMS_ITS | Clinical Summary ---
Author Organization [facility] Address [address] [place] [address] Care Team Providers Care Company Doctor Name Role Phone Sherice Lange NP Primary Care Provider Burton Barragan MD Unavailable + [phone] Allergies No known active allergies Medications Medication [...] tablet Take 200 mg by mouth Active Encounters Date Type Department Care Team Description 09/11/2023 Telephone [facility] [place] [address] [place] [phone] Burton Barragan MD Clinic Care Coordination - Follow-up (08/21/23) 09/10/2023 2:40 PM CDT Office Visit [facility] [place] [address] [place] [phone] Burton Barragan MD Acute superficial venous thrombosis of lower extremity, right 09/10/2023 Travel 09/04/2023 9:45 AM CDT Lab [facility] [address] [place] [phone] Acute superficial venous thrombosis of lower extremity, right 09/04/2023 8:00 AM CDT Ancillary Procedure [facility] [address] [facility] [address] [place] [phone] Burton Barragan MD Acute superficial venous thrombosis of lower extremity, right 09/04/2023 Travel 08/28/2023 Travel from Last 3 Months Social [...] Description 10/12/2023 4:50 PM CDT Virtual Visit [facility] [place] [address] [place] [phone] Burton Barrgaan MD [address] [place] [address] Health Maintenance Due Date Last Done Comments [...] Barragan MD LAB - BLOOD ORDERABLES LABORATORY [facility] [address] Lab (no room number, 1st floor of clinic) [place] [address], [facility] [phone] * US Venous Competency Bilateral (09/04/2023 9:37 AM CDT) Anatomical Region Laterality Modality Lower Extremity Ultrasound Impressions 09/05/2023 1:04 PM CDT Examined by: Freddy Doan RVT Age: ??37 year old ? Reading MD: Milagros Arrington INDICATION:Right acute superficial phlebitis EXAM [...] Perforators: there is no evidence of incompetent precision crop manager veins at any level. LEFT: The [...] Perforators: there is no evidence of incompetent precision crop manager veins at any level. FINAL SUMMARY: Vital extremity: Deep veins 1. ??No deep vein thrombosis 2. ??Common femoral vein incompetence Superficial veins 1. ??Focal, chronic, nonocclusive thrombus right thigh great saphenous vein-improved from previous study 2. ??The great saphenous vein is incompetent from the saphenofemoral junction through the mid calf and is the source of incompetent varicosities in the thigh and calf Credit Underwriter veins No incompetent perforators Left lower extremity: Deep veins 1. ??No deep vein thrombosis 2. ??Common femoral vein incompetence Superficial veins 1. ??No superficial vein thrombosis 2. ??Saphenofemoral junction through mid thigh and proximal calf great saphenous vein incompetence. ??A incompetent varicosity branches from the great saphenous vein in the thigh coursing to the Credit Underwriter veins No incompetent perforators Incompetence Criteria: greater than 500 milliseconds in superficial and precision crop manager veins and greater than 1000 milliseconds in deep veins. C Davin Arrington MD, FACS Narrative 09/05/2023 1:04 PM CDT Name: ??Kun Wu ? Date: September 04, 2023 ? : 1985 Sex: female Burton Barragan MD IMG ORDER MAR * Glucose (External Result) (01/05/2023 8:55 AM CDT) Glucose (External) 100 60 - 115 mg/dL [facility] Blood 01/05/2023 8:[address] [facility] - 01/05/2023 8:[address] [facility] Lab Result Provider Outside LAB - HIM EXTERNAL R ESULT [facility] [address] [place] [address], [facility] [phone] from Last 3 Months or Most Recently Relevant to Health Maintenance Care Teams Company Doctor Relationship Specialty Start Date End Date Sherice Lange NP [facility] [address] [place] [address] PCP - General 01/25/23 Burton Barragan MD [address] [place] [address] Assigned Heart and Vascular Provider 02/03/23
--- OUTSIDE RECORDS SUMMARY | 2023-10-09 17:43 | XMS_ITS | Encounter Summary ---
Author Organization [facility] Address [address] [place] [address]. [place] [address] Care Team Providers Care Byproducts Maker Name Role Phone Sherice Lange NP Primary Care Provider Burton Barragan MD Unavailable + [phone] Reason for Visit * Diagnostic Imaging Ultrasound (Routine) - Pending Review Specialty Diagnoses / Procedures Referred By Contac t Referred To Contact Radiology. Diagnoses Acute superficial venous thrombosis of lower extremity, right Procedures US Venous Competency Bilateral Burton Barragna MD [address] [place] [address] Referral ID Status Reason Start Date Expiration Date V isits Requested Visits Authorized [id number] Pending Review 04/16/2023 04/15/2024 1 1 Encounter Details Date Type Department Care Team (Late st Contact Info) Description 09/04/2023 8:00 AM CDT Ancillary Procedure [facility] [address] [address] [place] [phone] Burton Barragan MD [address] [place] [phone] Acute superficial venous thrombosis of lower extremity, [...] Description 10/12/2023 4:50 PM CDT Virtual Visit [facility] [place] [address] [place] [phone] Burton Barragan MD [address] [place] [address] documented as of this encounter Procedures Procedure Name Priority Date/Time Associated Diagnosis Comments US VENOUS COMPETENCY BILATERAL Routine 09/04/2023 9:37 AM CDT Acute superficial venous thrombosis of lower extremity, right documented in this encounter Results * US Venous Competency Bilateral (09/04/2023 9:37 [...] Perforators: there is no evidence of incompetent refrigerating machine operator veins at any level. LEFT: The [...] Perforators: there is no evidence of incompetent refrigerating machine operator veins at any level. FINAL SUMMARY: Vital extremity: Deep veins 1. ??No deep vein thrombosis 2. ??Common femoral vein incompetence Superficial veins 1. ??Focal, chronic, nonocclusive thrombus right thigh great saphenous vein-improved from previous study 2. ??The great saphenous vein is incompetent from the saphenofemoral junction through the mid calf and is the source of incompetent varicosities in the thigh and calf Ammonia Box Tender veins No incompetent perforators Left lower extremity: Deep veins 1. ??No deep vein thrombosis 2. ??Common femoral vein incompetence Superficial veins 1. ??No superficial vein thrombosis 2. ??Saphenofemoral junction through mid thigh and proximal calf great saphenous vein incompetence. ??A incompetent varicosity branches from the great saphenous vein in the thigh coursing to the Ammonia Box Tender veins No incompetent perforators Incompetence Criteria: greater than 500 milliseconds in superficial and refrigerating machine operator veins and greater than 1000 milliseconds in deep veins. C Davin Arrington MD, FACS Narrative 09/05/2023 1:04 PM CDT Name: ??Kun Wu ? Date: September 04, 2023 ? : 1985 Sex: female Burton Barragan MD [facility] documented in this encounter Visit Diagnoses Diagnosis Acute superficial venous thrombosis of lower extremity, right documented in this encounter Care Teams Byproducts Maker Relationship Specialty Start Date End Date Sherice Lange NP [address] [address] PCP - General 01/25/23 Burton Barragan MD [address] [place] [address] Assigned Heart and Vascular Provider 02/03/23 documented as of this encounter
--- OUTSIDE RECORDS SUMMARY | 2023-10-09 17:43 | XMS_ITS | Encounter Summary ---
Author Organization [facility] Address [address] [place] [address] Care Team Providers Care Computer Art Instructor Name Role Phone Sherice Lange NP Primary Care Provider [phone] Burton Barragan MD Unavailable + [phone] Reason for Referral * Consultation (Routine: Next available opening) - Pending Review Specialty Diagnoses / Procedures Referred By Gabriele hoffman Referred To Contact Diagnoses Acute superficial venous thrombosis of lower extremity, right Burton Barragan MD [address] [place] [address] Referral ID Status Reason Start Date Expiration Date V isits Requested Visits Authorized [id number] Pending Review 09/11/2023 09/10/2024 1 1 Question Answer New or return visit? Return Appt Length 30 Min To be seen by Dr. Burton Barragan Comments Follow-up to 09/10/23 D-dimer (non-fasting lab) in one month Virtual visit 2-3 days later. These are internal orders to be used by [facility] providers only. Reason for Visit * Reason Comments RECHECK Follow-up to 04/16/23 D-dimer (non-fasting lab) BLE venous competency ultrasoundFollow up one week later. In clinic preferred by provider. * Consultation (Routine: Next available opening) - Pending Review Specialty Diagnoses / Procedures Referred By Gabriele hoffman Referred To Contact Diagnoses Acute superficial venous thrombosis of lower extremity, right Burton Barragan MD [address] [place] [address] Referral ID Status Reason Start Date Expiration Date V isits Requested Visits Authorized [id number] Pending Review 05/03/2023 05/02/2024 1 1 Encounter Details Date Type Department Care Team (Late st Contact Info) Description 09/10/2023 2:40 PM CDT Office Visit [facility] [place] [address] [place] [phone] Burton Barragan MD [address] [place] [phone] Acute superficial venous thrombosis of lower extremity, [...] Mass Index 41.72 09/10/2023 2:36 PM CDT documented in this encounter Progress Notes * Zakia Hinkle - 09/10/2023 2:40 PM CDT Patient is here to discuss follow up BP 125/86 (BP Location: Right arm, Patient Position: Chair, Cuff Size: Adult Large) Pulse 64 Ht5' 8 (1.727 m) Wt 274 lb 6.4 oz (124.5 kg) SpO2 100% BMI 41.72 kg/m?? Questions patient would like addressed today are: N/A. Refills are needed: No Has homecare services and agency name: Anastasia [facility] * Burton Barragan MD - 09/10/2023 2:40 PM CDT VASCULAR MEDICINE FOLLOW UP VISIT A/P: (I82.548) Acute superficial venous thrombosis of lower extremity, right (primary encounter diagnosis) Comment: This was her first lifetime VTE event. It was provoked by estrogen use in an individual who is obese and who was not yet known to be a Leiden heterozygote. She has only had a single lifetimemiscarriage so APLA syndrome is unlikely and she was therefore kept ACd on Xarelto. As she was not encroaching further upon the SFJ in 04/2023, I did not increase the dose to 20 mg daily. As she had a large volume of clot initially and is young, I did prefer a twelve week course of AC a supposed tosix weeks for SVT. D dimer of 04/04/23 was normal. Venous comp study of 04/04/23 revealed no DVT, persistent but smaller Rt calf GSV SVT, and bilateral venous incompetence into the thighs. She is wearing compression to the thigh high location. I did therefore continue rivaroxaban ANTICOAGULANT (XARELTO) 10 MG TABS tablet for three more months. We checked a d dimer on 09/04/23 which was normal. Venous comp study of 09/04/23 revealed continued presence of superficial thrombus, but with further resorption. Plan: Discontinue rivaroxaban currently. In one month check d dimer. If no increase then stop checking d dimer. The longitudinal care of plan for Carolyn was addressed during this visit. Due to added complexity of care, we will continue to support Carolyn and the subsequent management of this condition and with ongoing continuity of care for this condition. 31 minutes total medical car rosalee today's date. HPI: Kun Wu is a morbidly obese (Body mass index is 37.96 kg/m??.) 37 year old female with a h/o one prior miscarriage. She has a sister who has a h/o a single miscarriage as well. She was on an estrogen containing OCs. Her maternal GM had a DVT in her elderly years. 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 LEFT: The [...] Perforators: there is no evidence of incompetent shuttle buggy operator veins at any level. FINAL SUMMARY: Right lower extremity: Deep veins 1. No deep vein thrombosis 2. Common femoral and mid femoral vein incompetence, otherwise the deep vein valves are competent Superficial veins 1. Chronic, nonocclusive thrombus right proximal to mid calf great saphenous vein 2. Saphenofemoral junction through proximal calf great saphenous vein incompetence 3. Proximal calf small saphenous vein incompetence Machine Or Machinery Mechanic veins No incompetent perforators Left lower extremity: Deep veins 1. No deep vein thrombosis 2. Proximal femoral vein incompetence, otherwise the deep vein valves are competent Superficial veins 1. No superficial thrombophlebitis 2. Proximal to mid femoral and proximal calf great saphenous vein incompetence. A large, incompetent varicosity courses from the thigh great saphenous vein down to the medial calf Machine Or Machinery Mechanic veins No incompetent perforators Incompetence Criteria: greater than 500 milliseconds in superficial and shuttle buggy operator veins and greater than 1000 milliseconds in deep veins. Milagros Arrington MD, FACS Name: Kun Wu Date: September 04, 2023 : 1985 Sex: female Examined by: Freddy Doan RVT Age: [age] year old Reading MD: Milagros Arrington INDICATION:Right acute superficial [...] augmentations. There is no DVT. Thecommon femoral vein is incompetent and free of thrombus. The remaining deep veins are competent andfree of thrombus. The proximal calf GSV has [...] the greatest reflux time of 5757 milliseconds. The GSV gives rise to multiple incompetent varicose [...] Perforators: there is no evidence of incompetent shuttle buggy operator veins at any level. LEFT: The deep veins demonstrate phasic flow, compress and respond to augmentations. There is no DVT. Thecommon femoral vein is incompetent and free of thrombus. The remaining deep veins are competent andfree of thrombus. The GSV demonstrates phasic flow, [...] the greatest reflux time of 6599 milliseconds. The GSV gives rise to a varicose branch measuring 7.2 mm off the Mid Thigh that courses to proximal calf with [...] Perforators: there is no evidence of incompetent shuttle buggy operator veins at any level. FINAL SUMMARY: Vital extremity: Deep veins 1. No deep vein thrombosis 2. Common femoral vein incompetence Superficial veins 1. Focal, chronic, nonocclusive thrombus right thigh great saphenous vein- improved from previous study 2. The great saphenous vein is incompetent from the saphenofemoral junction through the mid calf and is the source of incompetent varicosities in the thigh and calf Machine Or Machinery Mechanic veins No incompetent perforators Left lower extremity: Deep veins 1. No deep vein thrombosis 2. Common femoral vein incompetence Superficial veins 1. No superficial vein thrombosis 2. Saphenofemoral junction through mid thigh and proximal calf great saphenous vein incompetence. Aincompetent varicosity branches from the great saphenous vein in the thigh coursing to the Machine Or Machinery Mechanic veins No incompetent perforators Incompetence Criteria: greater than 500 milliseconds in superficial and shuttle buggy operator veins and greater than 1000 milliseconds in deep veins. C Davin Arrington MD, FACS documented in this encounter Miscellaneous Notes * Addendum Note - Radha Avila RN - 09/10/2023 2:40 PM CDTAddended by: RADHA AVILA on: 09/11/2023 03:19 PM Modules accepted: Orders documented in this encounter Plan of Treatment Upcoming Encounters Date Type Department Care Team (Late st Contact Info) Description 10/12/2023 4:50 PM CDT Virtual Visit [facility] [place] [address] [place] [phone] Burton Barragan MD [address] [place] [address] Scheduled Orders Name Type Priority Associated Diagnoses Orde r Schedule D dimer quantitative Lab Routine Acute superficial venous thrombosis of lower extremity, right Expected: 10/10/2023 (Approximate), Expires: 01/11/2024 Scheduled Referrals Name Type Priority Associated Diagnoses Orde r Schedule Follow-Up with Vascular Medicine Referral Routine: Next available opening Acute superficial venous thrombosis of lower extremity, right Expected: 09/11/2023 (Approximate), Expires: 01/11/2024 documented as of this encounter Visit Diagnoses Diagnosis Acute superficial venous thrombosis of lower extremity, right documented in this encounter Care Teams Computer Art Instructor Relationship Specialty Start Date End Date Sherice Lange NP [address] [address] PCP - General 01/25/23 Burton Barragan MD [address] [place] [address] Assigned Heart and Vascular Provider 02/03/23 documented as of this encounter
--- OUTSIDE RECORDS SUMMARY | 2023-10-09 17:43 | XMS_ITS | Encounter Summary ---
Author Organization [facility] Address [address] [place] [address]. [place] [address] Care Team Providers Care Evp Strategy Name Role Phone Sherice Lange NP Primary Care Provider Burton Barragan MD Unavailable +- [phone] Reason for Visit * Reason [place] Date Comments Clinic Care Coordination - Follow-up 09/11/2023 08/21/23 Encounter Details Date Type Department Care Team (Late st Contact Info) Description 09/11/2023 Telephone [facility] [place] [address] [place] [phone] Burton Barragan MD [address] [place] [address] Clinic Care Coordination - Follow-up (08/21/23) Social History Tobacco Use Types Packs/Day Years [...] encounter Miscellaneous Notes * Telephone Encounter - Soledad Donato - 09/14/2023 11:19 AM CDT Patient scheduled for the below. * Telephone Encounter - Ronaldo Carlson - 09/12/2023 10:32 AM CDT Lab faxed to [facility] [place]. [phone] Asked patient to schedule lab and then call [facility] back to schedule with Dr Barragan. * Telephone Encounter - Ronaldo Carlson - 09/12/2023 10:00 AM CDT Left voicemail with instructions for patient to call back to schedule their appointment(s) September 12, 2023 , 10:00 AM * Telephone Encounter - Radha Serrano RN - 09/11/2023 3:18 PM CDT Follow-up to 09/10/23 D-dimer (non-fasting lab) in one month Virtual visit 2-3 days later. documented in this encounter Plan of Treatment Upcoming Encounters Date Type Department Care Team (Late st Contact Info) Description 10/12/2023 4:50 PM CDT Virtual Visit [facility] [place] [address] [place] [phone] Burton Barragan MD [address] [place] [address] documented as of this encounter Visit Diagnoses Not on filedocumented in this encounter Care Teams Evp Strategy Relationship Specialty Start Date End Date Sherice Lange NP [facility] [address] [place] [address] PCP - General 01/25/23 Burton Barragan MD [address] [place] [address] Assigned Heart and Vascular Provider 02/03/23 documented as of this encounter
[2023-10-09 19:13] LABS: D Dimer Quantitative* 0.39 ug/ml (0.00-0.50)
== END 2023-10-09 17:41 | disposition home or self-care (01) ==
LOC: NPINS 17:40
PROVIDERS: PCP Nurse Practitioner Family; Visit Provider Internal Medicine Cardiovascular Disease
DX: I82.811 Embolism and thrombosis of superficial veins of right lower extremity (principal)
CPT/HCPCS: 85379

== ENCOUNTER 2024-01-11 09:30 | Outpatient (RCR) | payer BC, SELFPAY | END 2024-05-10 23:59 | disposition home or self-care (01) | PROVIDERS: PCP Nurse Practitioner Family; Visit Provider Nurse Practitioner Family | DX: N39.3 Stress incontinence (female) (male) (principal); R27.8 Other lack of coordination; K59.00 Constipation, unspecified; Z51.89 Encounter for other specified aftercare | CPT/HCPCS: 87086; 97110; 97112; 97140; 97161; 97530; 97535 ==

== ENCOUNTER 2024-06-13 10:50 | Outpatient (CLI) | payer BC, SELFPAY ==
[2024-06-16 10:50] LABS: HPV Source Vaginal; HPV, High Risk by TMA Not Detected
== END 2024-06-13 10:51 | disposition home or self-care (01) ==
PROVIDERS: PCP Nurse Practitioner Family; Visit Provider Nurse Practitioner Family
DX: R00.2 Palpitations (principal); F41.9 Anxiety disorder, unspecified; E66.813 Obesity, class 3; G47.00 Insomnia, unspecified; K21.9 Gastro-esophageal reflux disease without esophagitis; Z13.0 Encounter for screening for diseases of the blood and blood-forming organs and certain disorders involving the immune mechanism; Z13.6 Encounter for screening for cardiovascular disorders; Z12.4 Encounter for screening for malignant neoplasm of cervix; Z11.51 Encounter for screening for human papillomavirus (HPV)
CPT/HCPCS: 80053; 80061; 84443; 85025; 87624; 87625; 88141; 88142